=== PATIENT | female | born 1950 | race Caucasian/White ===

== ENCOUNTER → 2016-08-15 | Outpatient (CLI) | payer OTHER ==
[~2016-08-15] VITALS: Ht 165.1 cm; Wt 129.3 kg
[~2016-08-15] MED LIST: AMBIEN 5 MG TABL5 M1 PO; CELEXA20 MG PO; GLIPIZIDE XL10 MG PO; HUMALOG MI100 UNIT/1 SQ; HYDROCODONE-AP1 EAC6 PO; PRILOSEC20 MG PO; REMERON15 MG PO; SYNTHROID150 MCG PO; VASOTEC10 MG PO; XARELTO20 MG PO; ZOCOR20 MG PO; [UNRECOGNIZED DRUG - OTHER]; [UNRECOGNIZED DRUG - OTHER]
[2016-08-15 12:56] VITALS: BP 150/77
== END | disposition home or self-care (01) ==
LOC: PAIN 06:43
DX: M54.16 Radiculopathy, lumbar region (principal); E11.9 Type 2 diabetes mellitus without complications; E66.01 Morbid (severe) obesity due to excess calories; Z68.42 Body mass index [BMI] 45.0-49.9, adult; Z88.0 Allergy status to penicillin; Z88.8 Allergy status to other drugs, medicaments and biological substances; Z79.899 Other long term (current) drug therapy; Z79.4 Long term (current) use of insulin; Z98.890 Other specified postprocedural states

== ENCOUNTER 2016-09-06 20:42 | Inpatient (IN) | payer OTHER ==
[~2016-09-06] VITALS: Ht 165.1 cm; Wt 128.0 kg
--- NOTE | ~2016-09-06 | EKG ---
[address] [place] [address] ELECTROCARDIOGRAM REPORT Name: DEANNA MCGOVERN Room #: 307-P ADM IN M.R.#: [id number] Admission: 09/06/16 Attend Phys: Raffy Weaver MD Discharge: Date of : 46 Report #: [id number] THIS REPORT FOR: //name// [facility] ED Test Date: 2016-09-06 Test Time: 21:14:20 Pat Name: DEANNA MCGOVERN Department: Room: [facility] Gender: F Health Care Sanitary Technician: MARYSOL Campos : 1950 Requested By: Basilio Orellana Order Number: [id number] MD: Jairo Peña Measurements Intervals [place] Rate: 81 P: 50 LA: 154 QRS: 12 QRSD: 60 T: QT: 567 QTc: 659 Interpretive Statements Sinus rhythm Low voltage, precordial leads Borderline T abnormalities, anterior leads Prolonged QT interval Compared to ECG 11/16/2004 09:18:45 Low QRS voltage now present Prolonged QT interval now present Sinus bradycardia no longer present Electronically Signed On 09-08-2016 10:50:49 CDT by Jairo Peña [email or web address] <ELECTRONICALLY SIGNED> By: Jairo Peña MD, [facility] 09/08/16 1050 13 13 Jairo Peña MD, [facility] /EPI
[2016-09-06 20:45] VITALS: BP 148/89
[2016-09-06 21:44] LABS: ABSOLUTE NEUTROPHILS 10.5 thou/uL (1.4-8.2); BASOPHILS 0.7 % (0.0-2.0); EOSINOPHILS 0.1 % (0.0-3.0); HEMATOCRIT 41.7 % (37.0-47.0); HEMOGLOBIN 13.3 gm/dL (12.0-15.0); LYMPHOCYTES 8.4 % (24.0-44.0); MCH 26.1 pg (26.0-34.0); MCHC 31.8 g/dL (28.0-37.0); MONOCYTES 2.2 % (1.0-8.0); PLATELET COUNT 198 thou/uL (150-400); POLYS 88.6 % (36.0-66.0); RBC 5.09 mil/uL (4.20-5.00); RDW 20.8 % (10.5-14.5); WBC 11.9 thou/uL (4.0-11.0)
[2016-09-06 21:47] LABS: MANUAL DIFF NO
[2016-09-06 21:47] LABS: ABG SAMPLE TYPE ARTERIAL; BE(vivo) -6.8 mmol/L (-2 to +3); HCO3 16.4 mmol/L (22.0-26.0); O2(CT) 18.2 mL/dL (15.0-23.0); O2Hb 93.7 % (92.0-98.0); PCO2 27.1 mmHg (35.0-45.0); PO2 73.6 mmHg (80.0-100.0); pH 7.399 (7.360-7.450); sO2 95.1 % (92.0-98.0); tCO2 17.2 mmol/L (24.0-30.0)
[2016-09-06 21:53] LABS: LACTATE 4.16 mmol/L (0.5-2.0)
[2016-09-06 22:00] LABS: APTT 26.1 Seconds (24.5-32.8); PROTIME 9.7 Seconds (9.3-11.4)
[2016-09-06 22:08] LABS: ALBUMIN 3.8 g/dL (3.4-5.0); ALKALINE PHOSPHATASE 200 U/L (46-116); ANION GAP 17 mmol/L (7-16); BUN 19 mg/dL (7-18); CALCIUM 9.8 mg/dL (8.5-10.1); CHLORIDE 96 mmol/L (98-107); CO2 19 mmol/L (21-32); MAGNESIUM 1.8 mg/dL (1.8-2.4); NT-PRO BRAIN NAT PEPTIDE 110 pg/mL (<300); POTASSIUM 4.8 mmol/L (3.5-5.1); SGOT 70 U/L (15-37); SGPT 34 U/L (30-65); SODIUM 132 mmol/L (136-145); TOTAL BILIRUBIN 0.7 mg/dL (<0.1-1.0); TOTAL PROTEIN 7.5 g/dL (6.4-8.2); TROPONIN-I < 0.04 ng/mL (<0.04-0.07)
[2016-09-06 22:10] LABS: GLUCOSE 642 mg/dL (74-106)
[2016-09-07] VITALS (19 sets, daily range): BP systolic 97–140; BP diastolic 57–106
[2016-09-07 09:52] LABS: HEMATOCRIT 38.3 % (37.0-47.0); HEMOGLOBIN 12.3 gm/dL (12.0-15.0); MCH 26.3 pg (26.0-34.0); MCHC 32.1 g/dL (28.0-37.0); MCV 81.9 fL (80.0-100.0); RBC 4.68 mil/uL (4.20-5.00); RDW 20.8 % (10.5-14.5); WBC 10.3 thou/uL (4.0-11.0)
[2016-09-07 10:07] LABS: ALBUMIN 3.2 g/dL (3.4-5.0); CALCIUM 9.3 mg/dL (8.5-10.1); CREATININE 1.4 mg/dL (0.6-1.0); TOTAL BILIRUBIN 0.4 mg/dL (<0.1-1.0); TOTAL PROTEIN 6.6 g/dL (6.4-8.2)
[2016-09-07 10:10] LABS: POTASSIUM 3.7 mmol/L (3.5-5.1)
[2016-09-07 17:13] LABS: URINE BILIRUBIN NEGATIVE (Negative); URINE BLOOD 3+ (Negative); URINE COLOR YELLOW; URINE GLUCOSE-RANDOM* 3+ (Negative); URINE KETONES NEGATIVE (Negative); URINE LEUKOCYTES-REFLEX NEGATIVE (Negative); URINE PROTEIN (DIPSTICK) TRACE (Negative); URINE SPECIFIC GRAVITY 1.025 (1.003-1.035); URINE UROBILINOGEN 0.2 E.U./dl (0.2-1.0)
[2016-09-07 17:20] LABS: CASTS None Seen /LPF (None Seen); CRYSTALS None Seen /LPF (None Seen); SQUAMOUS None Seen /LPF (0-3); URINE RBC >20 Many /HPF (0-2); URINE WBC-REFLEX None Seen /HPF (0-5)
[2016-09-08 03:35] VITALS: BP 121/71
[2016-09-08 07:44] VITALS: BP 151/77
[2016-09-08 07:50] LABS: ALBUMIN 3.2 g/dL (3.4-5.0); CREATININE 1.2 mg/dL (0.6-1.0); TOTAL BILIRUBIN 0.5 mg/dL (<0.1-1.0); TOTAL PROTEIN 6.7 g/dL (6.4-8.2)
[2016-09-08 15:48] VITALS: BP 105/69
[2016-09-08 19:18] VITALS: BP 107/60
[2016-09-09 03:48] VITALS: BP 106/55
[2016-09-09 03:50] LABS: CALCIUM 9.2 mg/dL (8.5-10.1); POTASSIUM 3.9 mmol/L (3.5-5.1)
[2016-09-09 07:17] VITALS: BP 101/66
[2016-09-09 15:53] VITALS: BP 112/62
[2016-09-09 19:55] VITALS: BP 102/64
[2016-09-10] VITALS (7 sets, daily range): BP systolic 100–105; BP diastolic 57–64
[2016-09-10] MEDS ORDERED: XARELTO20 MG PO (12:20)
[2016-09-10] MEDS ORDERED: HYDROCODONE-AP1 EAC6 PO (12:20)
[2016-09-10] MEDS ORDERED: DUONEB 2.5-0.5 M3 ML INH (12:22)
[2016-09-10] MEDS ORDERED: LEVAQUIN 500 M500 M2 PO (12:22)
[2016-09-10] MEDS ORDERED: LANTUS100 UNIT/M SUBQ (12:23)
== END 2016-09-10 19:49 | disposition home health service (06) | DRG 871 ==
LOC: ER 20:42 → 3N 22:21 → EROBS 22:21 → ICU 09-07 00:01 → 3N 09-07 15:59
PROVIDERS: Emergency Medicine; Family Medicine
DX: A41.9 Sepsis, unspecified organism (principal); J18.9 Pneumonia, unspecified organism; E13.10 Other specified diabetes mellitus with ketoacidosis without coma; N17.9 Acute kidney failure, unspecified; J98.11 Atelectasis; I10 Essential (primary) hypertension; R65.20 Severe sepsis without septic shock; J45.909 Unspecified asthma, uncomplicated; M19.90 Unspecified osteoarthritis, unspecified site; K21.9 Gastro-esophageal reflux disease without esophagitis; Z96.641 Presence of right artificial hip joint; R09.02 Hypoxemia; G47.30 Sleep apnea, unspecified; T38.0X5A Adverse effect of glucocorticoids and synthetic analogues, initial encounter; Y92.89 Other specified places as the place of occurrence of the external cause; Z86.711 Personal history of pulmonary embolism; Z87.81 Personal history of (healed) traumatic fracture; Z79.01 Long term (current) use of anticoagulants; Z79.4 Long term (current) use of insulin; Z90.49 Acquired absence of other specified parts of digestive tract; Z79.899 Other long term (current) drug therapy; Z98.1 Arthrodesis status; Z87.891 Personal history of nicotine dependence; Z88.0 Allergy status to penicillin; Z88.8 Allergy status to other drugs, medicaments and biological substances; Z82.5 Family history of asthma and other chronic lower respiratory diseases
CPT/HCPCS: 10096

== ENCOUNTER → 2016-09-13 | Outpatient (CLI) | payer OTHER ==
[~2016-09-13] MED LIST changes: +DUONEB 2.5-0.5 M3 ML INH; +LANTUS100 UNIT/M SUBQ; +LEVAQUIN 500 M500 M2 PO
== END | disposition home or self-care (01) ==
LOC: PAIN
DX: J98.11 Atelectasis (principal); E13.10 Other specified diabetes mellitus with ketoacidosis without coma; Z88.0 Allergy status to penicillin; Z88.8 Allergy status to other drugs, medicaments and biological substances; Z79.4 Long term (current) use of insulin; Z79.899 Other long term (current) drug therapy; Z86.711 Personal history of pulmonary embolism; Z98.890 Other specified postprocedural states

== ENCOUNTER 2017-02-19 03:12 | Inpatient (IN) | payer OTHER ==
[~2017-02-19] VITALS: Ht 165.1 cm; Wt 122.5 kg
--- NOTE | ~2017-02-19 | EKG ---
[place] [address] [facility] [place] [address] ELECTROCARDIOGRAM REPORT Name: DEANNA MCGOVERN Room #: 170-8 ADM IN M.R.#: [id number] Admission: 02/19/17 Attend Phys: Raffy Weaver MD Discharge: Date of : 46 Report #: [id number] THIS REPORT FOR: //name// [facility] ED Test Date: 2017-02-19 Test Time: 03:32:18 Pat Name: DEANNA MCGOVERN Department: Room: 170 Gender: F Machine Tailer: chris : 1950 Requested By: Leeanne Aguilar Order Number: [id number] MD: Jairo Peña Measurements Intervals [place] Rate: 92 P: 42 MI: 147 QRS: 18 QRSD: 54 T: 7 QT: 455 QTc: 563 Interpretive Statements Sinus rhythm Low voltage, precordial leads Borderline T abnormalities, anterior leads Prolonged QT interval Compared to ECG 09/06/2016 21:14:20 No significant changes Electronically Signed On 02-19-2017 8:36:14 ORTHOPEDIC PHYSICAL THERAPIST by Jairo Peña [email or web address] <ELECTRONICALLY SIGNED> By: Jairo Peña MD, [facility] 02/19/17 0836 0332 0332 Jairo Peña MD, [facility] /EPI
[2017-02-19 03:19] VITALS: BP 148/80
[2017-02-19 03:38] LABS: ABSOLUTE NEUTROPHILS 6.5 thou/uL (1.4-8.2); BASOPHILS 0.7 % (0.0-2.0); EOSINOPHILS 0.9 % (0.0-3.0); HEMATOCRIT 44.1 % (37.0-47.0); HEMOGLOBIN 14.1 gm/dL (12.0-15.0); LYMPHOCYTES 27.4 % (24.0-44.0); MCH 25.8 pg (26.0-34.0); MCHC 31.9 g/dL (28.0-37.0); MCV 80.8 fL (80.0-100.0); MONOCYTES 6.4 % (1.0-8.0); PLATELET COUNT 200 thou/uL (150-400); POLYS 64.6 % (36.0-66.0); RBC 5.46 mil/uL (4.20-5.00); RDW 18.2 % (10.5-14.5)
[2017-02-19 03:40] LABS: BE(vivo) -3.4 mmol/L (-2 to +3); HCO3 20.8 mmol/L (22.0-26.0); PCO2 35.3 mmHg (35.0-45.0); PO2 64.9 mmHg (80.0-100.0); pH 7.389 (7.360-7.450); sO2 92.7 % (92.0-98.0)
[2017-02-19 03:51] LABS: ANION GAP 14 mmol/L (7-16); BUN 17 mg/dL (7-18); CALCIUM 9.2 mg/dL (8.5-10.1); CHLORIDE 101 mmol/L (98-107); CO2 21 mmol/L (21-32); CREATININE 1.2 mg/dL (0.6-1.0); POTASSIUM 5.6 mmol/L (3.5-5.1); SODIUM 136 mmol/L (136-145)
[2017-02-19 03:56] LABS: TROPONIN-I < 0.04 ng/mL (<0.06)
[2017-02-19 04:04] LABS: GLUCOSE 274 mg/dL (74-106)
[2017-02-19 05:03] LABS: URINE BILIRUBIN NEGATIVE (Negative); URINE BLOOD NEGATIVE (Negative); URINE CLARITY CLEAR; URINE COLOR YELLOW; URINE GLUCOSE-RANDOM* 3+ (Negative); URINE KETONES NEGATIVE (Negative); URINE LEUKOCYTES NEGATIVE (Negative); URINE NITRITE NEGATIVE (Negative); URINE PROTEIN (DIPSTICK) NEGATIVE (Negative); URINE UROBILINOGEN 0.2 E.U./dl (0.2-1.0)
[2017-02-19 12:18] VITALS: BP 104/55
[2017-02-19 16:50] VITALS: BP 116/64
[2017-02-19 17:27] VITALS: BP 107/60
[2017-02-19 20:30] VITALS: BP 110/61
[2017-02-20 04:48] VITALS: BP 123/61
[2017-02-20 08:29] VITALS: BP 141/82
[2017-02-20 16:00] VITALS: BP 129/66
[2017-02-20 19:46] VITALS: BP 112/63
[2017-02-21 04:15] VITALS: BP 144/79
[2017-02-21 08:00] VITALS: BP 137/84
[2017-02-21 08:30] VITALS: BP 137/84
[2017-02-21] MEDS ORDERED: PRADAXA150 MG PO (12:15)
[2017-02-21] MEDS ORDERED: LEVAQUIN 500 M500 M2 PO (12:16)
[2017-02-21 12:19] VITALS: BP 137/84
== END 2017-02-21 13:57 | disposition home or self-care (01) | DRG 871 ==
LOC: ER 03:12 → 4E 05:23 → EROBS 05:23 → 4E 17:04 → ENTRNSPT 02-21 13:21 → EDTRNSPTSTS 02-21 13:24 → 4E 02-21 13:57
PROVIDERS: Emergency Medicine
DX: A41.9 Sepsis, unspecified organism (principal); J18.9 Pneumonia, unspecified organism; J44.0 Chronic obstructive pulmonary disease with (acute) lower respiratory infection; M19.90 Unspecified osteoarthritis, unspecified site; K21.9 Gastro-esophageal reflux disease without esophagitis; Z96.641 Presence of right artificial hip joint; F32.9 Major depressive disorder, single episode, unspecified; E11.65 Type 2 diabetes mellitus with hyperglycemia; Z82.5 Family history of asthma and other chronic lower respiratory diseases; Z86.711 Personal history of pulmonary embolism; Z90.49 Acquired absence of other specified parts of digestive tract; Z79.4 Long term (current) use of insulin; Z88.0 Allergy status to penicillin; Z88.8 Allergy status to other drugs, medicaments and biological substances; Z87.891 Personal history of nicotine dependence; Z79.01 Long term (current) use of anticoagulants
CPT/HCPCS: 10084

== ENCOUNTER 2017-09-04 19:30 | Emergency (ER) | payer OTHER ==
[~2017-09-04] VITALS: Ht 165.1 cm; Wt 127.0 kg
[~2017-09-04 19:30] MED LIST changes: +PRADAXA150 MG PO
[2017-09-04] MEDS ORDERED: NAPROSYN500 MG PO (20:33)
== END 2017-09-04 20:53 | disposition home or self-care (01) ==
LOC: ER 19:30
DX: S80.02XA Contusion of left knee, initial encounter (principal); J45.909 Unspecified asthma, uncomplicated; M19.90 Unspecified osteoarthritis, unspecified site; K21.9 Gastro-esophageal reflux disease without esophagitis; E11.9 Type 2 diabetes mellitus without complications; Z79.4 Long term (current) use of insulin; G47.30 Sleep apnea, unspecified; Z90.49 Acquired absence of other specified parts of digestive tract; Z96.641 Presence of right artificial hip joint; Z87.891 Personal history of nicotine dependence; Z88.0 Allergy status to penicillin; W19.XXXA Unspecified fall, initial encounter; Y93.89 Activity, other specified; Y92.89 Other specified places as the place of occurrence of the external cause; Y99.8 Other external cause status

== ENCOUNTER 2018-04-30 10:54 | Inpatient (IN) | payer OTHER ==
[~2018-04-30] VITALS: Ht 165.1 cm; Wt 124.6 kg
[~2018-04-30 10:54] MED LIST changes: +NAPROSYN500 MG PO
[2018-04-30 10:57] VITALS: BP 105/75
[2018-04-30 12:01] LABS: HEMOGLOBIN 15.4 gm/dL (12.0-15.0); MCH 29.7 pg (26.0-34.0); MCHC 32.8 g/dL (28.0-37.0); MCV 90.4 fL (80.0-100.0); RDW 16.3 % (10.5-14.5); WBC 5.5 thou/uL (4.0-11.0)
[2018-04-30 12:11] LABS: ALBUMIN 3.2 g/dL (3.4-5.0); ANION GAP 7 mmol/L (7-16); BUN 12 mg/dL (7-18); CALCIUM 9.5 mg/dL (8.5-10.1); CHLORIDE 100 mmol/L (98-107); CO2 28 mmol/L (21-32); CREATININE 1.2 mg/dL (0.6-1.0); MAGNESIUM 1.8 mg/dL (1.8-2.4); SODIUM 135 mmol/L (136-145); TOTAL BILIRUBIN 0.7 mg/dL (<0.1-1.0); TOTAL PROTEIN 6.9 g/dL (6.4-8.2); TROPONIN-I <0.06 ng/mL (<0.06)
[2018-04-30 12:15] LABS: POTASSIUM 4.6 mmol/L (3.5-5.1)
[2018-04-30 12:16] LABS: GLUCOSE 513 mg/dL (74-106)
[2018-04-30 12:36] LABS: SGOT 99 U/L (15-37)
[2018-04-30 12:46] LABS: SGPT 33 U/L (30-65)
[2018-04-30 12:55] LABS: ABSOLUTE NEUTROPHILS 3.1 thou/uL (1.4-8.2)
[2018-04-30 12:56] LABS: PLATELET COUNT 178 thou/uL (150-400)
[2018-04-30 13:12] VITALS: BP 113/80
--- NOTE | 2018-04-30 13:26 | NUR ---
DR KOVACS UNAVAILABLE TO SPEAK WITH FENG, THIS CYANIDE POT TENDER UPDATED HIM ON THE PT, INCLUDING ADMIT DX AND LABS/IMAGING
[2018-04-30] MEDS ORDERED: JARDIANCE25 MG PO (14:35)
[2018-04-30] MEDS ORDERED: KOMBIGLYZE XR1 EAC2 PO (14:36)
[2018-04-30 14:40] VITALS: BP 120/74
[2018-04-30 15:00] VITALS: BP 133/85
--- NOTE | 2018-04-30 16:09 | NUR ---
PT ARIVED FROM ER 1500 WITH DX OF HYPERGYCEMIA, DIZZY, FRQUENT FALLS. ALERT X3 WITH CONFUSION. COULD NOT STATE THE YEAR. WILL CLOSE ONE EYE IN ORDER TO SEE CLEARLY. HAS UNSTEADY GAIT WITH DIZZINESS FULL FALL PRECAUTIONS IN PLACE. NSR TELE IN 70'S. CARB CONTROL DIET. CURRENT BS 349. FLUIDS NS 125ML/HR. CONTINENT TO COMMODE WITH ASSIST X1. DENIES PAIN, VSS. ADMISSION ASSESMENT AND HISTORY COMPLETED. CALL LIGHT IN REACH.
[2018-04-30 19:34] VITALS: BP 104/56
[2018-05-01 00:11] VITALS: BP 98/46
--- NOTE | 2018-05-01 03:56 | NUR ---
ASSUMED PT CARE AT 1900. PT A/OX4, VITAL SIGNS STABLE, ASSESSMENT CHARTED. NO COMPLAINTS OF PAIN/CHEST PAIN. BLOOD GLUCOSE WAS 354, SLIDING SCALE PROTOCOL FOLLOWED. PT COMPLAINED OF NAUSEA THROUGH OUT THE NIGHT. ZOFRAN GIVEN WHICH DID NOT SEEM TO HELP. PHYSICIAN INFORMED, NEW ORDERS RECIEVED AND IMPLEMENTED. PT VERBALIZED PARTIAL RELIEVE. PT OFTEN SAT UP IN BED TO HELP WITH THE NAUSEA. NO EPISODES OF VOMITING. PT ABLE TO AMBULATE SBA TO X1 ASSIST. CALLS OUT APPROPRIATELY. DIZZINES UPON STANDING BUT IMMEDIATELY RESOLVES. PT UNABLE TO GET A GOOD NIGHT'S REST DUE TO BEING NAUSEATED. HOURLY ROUNDING AND CLOSE MONITORING. PROGRESSING SLOWLY TOWARD PLAN OF CARE. WILL CONTINUE TO MONITOR.
[2018-05-01 05:53] VITALS: BP 91/49
[2018-05-01 07:41] VITALS: BP 148/93
--- NOTE | 2018-05-01 07:50 | EKG ---
[address] [place] [address] ELECTROCARDIOGRAM REPORT Name: DEANNA MCGOVERN Room #: 208-P ADM IN M.R.#: [id number] ������������������ Admission: 04/30/18 ������������������ Attend Phys: Raffy Weaver MD Discharge: ������������������ Date of : 46 Report #: [id number] ����������������������������������������������������������������� [id number] THIS REPORT FOR: //name// [facility] ED Test Date: 2018-04-30 Test Time: 12:07:35 Pat Name: DEANNA MCGOVERN Department: Room: 208 Gender: F Ticket Taker Ferryboat: WG : 1950 Requested By: Basilio Orellana Order Number: [id number] MD: Jairo Peña Measurements Intervals [place] Rate: 69 P: 42 SD: 142 QRS: -1 QRSD: 91 T: 12 QT: 431 QTc: 462 Interpretive Statements Sinus rhythm Low voltage, precordial leads Abnormal R-wave progression, late transition Nonspecific T wave abnormality Compared to ECG 02/19/2017 03:32:18 No significant change was found Electronically Signed On 05-01-2018 7:49:51 CDT by Jairo Peña [email or web address] ��������������������������������������������� <ELECTRONICALLY SIGNED> ���������������������������������������� By: Jairo Peña MD, [facility] ��������������������������������������������� 05/01/18 0749 1207 1207 Jairo Peña MD, [facility] /EPI
[2018-05-01 11:05] LABS: HEMOGLOBIN 14.7 gm/dL (12.0-15.0); MCH 29.4 pg (26.0-34.0); MCHC 33.3 g/dL (28.0-37.0); MCV 88.4 fL (80.0-100.0); RBC 4.98 mil/uL (4.20-5.00); RDW 15.6 % (10.5-14.5); WBC 6.3 thou/uL (4.0-11.0)
[2018-05-01 11:18] LABS: ALBUMIN 2.8 g/dL (3.4-5.0); CALCIUM 8.8 mg/dL (8.5-10.1); TOTAL BILIRUBIN 0.5 mg/dL (<0.1-1.0); TOTAL PROTEIN 5.9 g/dL (6.4-8.2)
[2018-05-01 11:22] LABS: POTASSIUM 3.4 mmol/L (3.5-5.1)
[2018-05-01 11:59] VITALS: BP 120/74
[2018-05-01 16:00] VITALS: BP 116/73
[2018-05-01 17:46] LABS: FOLIC ACID 19.8 ng/mL (8.6-58.9)
[2018-05-01 19:55] VITALS: BP 108/62
--- NOTE | 2018-05-01 20:10 | NUR ---
ASSUMED CARE OF PT AT 0700. A&OX4, UP WITH ASSIST X1. PT HAD NAUSEA THAT IMPROVED WITH REGLAN. PT WAS SINUS RHYTHM ON THE MONITOR. PT HAD GOOD APPETITE TODAY. BLOOD SUGARS HIGH AND PT REMAINS ON HIGH DOSE SLIDING SCALE. WILL CONT WITH POC.
--- NOTE | 2018-05-02 03:33 | NUR ---
AOX4, DIPLOPIA NOTED, FAILURE OF ABDUCTION OF THE LEFT EYE, DIABETIC PERIPHERAL NEUROPATHY. SR ON THE MONITOR, DENIES PAIN. ON ROOM AIR, CLEAR LUNG SOUNDS. COMPLAINT OF NAUSEA, MANAGED WITH METOCLOPRAMIDE. STILL WITH UNCONTROLLED BLOOD SUGAR, ON HIGH DOSE SLIDING SCALE. NSS IV AT 125 ML/HR INFUSING WELL ON RIGHT AC. MAINTAINED ON HIGH FALL RISK PRECAUTION. FF UP POC.
[2018-05-02 04:00] VITALS: BP 98/77
[2018-05-02 07:30] VITALS: BP 142/82
[2018-05-02 08:22] LABS: URINE BILIRUBIN NEGATIVE (Negative); URINE BLOOD 1+ (Negative); URINE CLARITY CLEAR; URINE COLOR YELLOW; URINE GLUCOSE-RANDOM* 3+ (Negative); URINE KETONES TRACE (Negative); URINE LEUKOCYTES-REFLEX NEGATIVE (Negative); URINE NITRITE-REFLEX NEGATIVE (Negative); URINE PROTEIN (DIPSTICK) NEGATIVE (Negative); URINE SPECIFIC GRAVITY >= 1.030 (1.005-1.035); URINE UROBILINOGEN 0.2 E.U./dl (0.2-1.0)
[2018-05-02 08:29] LABS: AMP/METHAMP Negative (Negative); BARBITURATES Negative (Negative); BENZODIAZEPINES Negative (Negative); COCAINE Negative (Negative); METHADONE Negative (Negative); OPIATES Negative (Negative); PCP Negative (Negative)
[2018-05-02 08:34] LABS: CASTS None Seen /LPF (None Seen); CRYSTALS None Seen /LPF (None Seen); URINE WBC-REFLEX 6-15 Few /HPF (0-5)
[2018-05-02 08:35] LABS: SQUAMOUS 4-10 Moderate /LPF (0-3); URINE RBC 0-2 Rare /HPF (0-2)
[2018-05-02 08:36] LABS: BACTERIA-REFLEX 1-9 Few /HPF (None Seen); YEAST-REFLEX Present (None Seen)
--- NOTE | 2018-05-02 09:15 | NUR ---
CALLED DR GIRON TO LET HIM KNOW THAT THERAPY AND CASE MANAGEMENT NEEDS TO ASSESS PATIENT AND DISCHARGE WILL NOT BE UNTIL Friday05/04/18 HE WAS OKAY WITH RHAT PLAN.
[2018-05-02 15:58] VITALS: BP 131/60
--- NOTE | 2018-05-02 18:21 | NUR ---
PT UP IN BEDSIDE CHAIR ATE DINNER AFTER BLOOD SUGAR CHECK AND S/S INSULIN. PT ALERT XS 3 STATES NO PAIN OR RESP DISTRESS. THIS NURSE SPOKE WITH RT TO HAVE C- PAP BROUGHT TO PATIENTS ROOM. PT CONT OF B&B. SBA TO BATHROOM.
[2018-05-02 19:40] VITALS: BP 118/78
--- NOTE | 2018-05-03 05:17 | NUR ---
1900- PT AO X4.VSS. DENIES PAIN, SOB, N/V AND DIZZINESS. PT HS BG 349 AND ASYMPTOMATIC. RECHECKED BG AFTER 20 UNITS OF HUMALOG BG 272. NO FURTHER COMPLAINS DURING THE NIGHT. WILL CONTINUE TO MONITOR.
[2018-05-03 05:37] VITALS: BP 125/64
[2018-05-03 08:14] VITALS: BP 142/91
[2018-05-03 12:32] VITALS: BP 143/90
[2018-05-03 15:57] VITALS: BP 138/67
--- NOTE | 2018-05-03 16:29 | NUR ---
ASSUMED CARE OF PT AT 0700. PT A&OX4, UP WITH ONE ASSIST. PT STATES HER NAUSEA HAS RESOLVED. PT COMPLAINED OF SHORTNESS OF BREATH AND PLACED ON 1L O2 NASAL CANNULA PRN. PT'S BLOOD GLUCOSE READINGS WERE STILL HIGH AND DOCTOR BREE ADDED LANTUS TO MEDICATIONS. PT'S VITALS WNL AND WAS SINUS RHYTHM ON TELEMETRY. WILL CONT WITH POC.
[2018-05-03 19:19] VITALS: BP 111/52
[2018-05-04 04:22] VITALS: BP 151/85
[2018-05-04 08:00] VITALS: BP 130/60
--- NOTE | 2018-05-04 08:16 | NUR ---
PT RESTING QUIETLY WITH CPAP OVER NOC, NO C/O PAIN, VSS, HOPING TO TRANSFER TO SKILLED TODAY WILL CON'T TO MONITOR PER PPPOC.
--- NOTE | 2018-05-04 09:42 | NUR ---
FAXED REFERRAL TO [facility] OP SPOKE WITH TIM IN ADM. SHE RECEIVED AND WILL REVIEW. DCP TO RAFIQ.
--- NOTE | 2018-05-04 09:42 | NUR ---
INITIAL ASSESSMENT: MELISSA reviewed chart and spoke with nursing and attending physician. Pt was admitted from home due to vertigo and uncontrolled DM. Pt is medically stable for discharge today. Recommendation made for pt to go to a SNF for continued rehab services and medical mgmt. MELISSA met with pt at bedside. Introduced role of SW. Pt is alert/orientated x 4. Pt reports she lives at home alone. Prior to admission, pt was independent with ADLs. Pt does have a home cpap and nebulizer. MELISSA discussed recommendation for post-acute placement. Pt is agreeable. Options provided to pt. Pt requests referral to be sent to [facility] due to location and continuity of care with her PCP. SW explained referral process and possible discharge later today. Pt verbalized understanding. planner to fax referral to [facility]. SW notified [facility] liaison. Chart copy requested. MELISSA updated attending physician. MELISSA is following to assist as needed with discharge planning.
[2018-05-04] MEDS ORDERED: ASPIR 8181 MG PO (10:05)
[2018-05-04] MEDS ORDERED: REGLAN 5 MG TAB5 MG PO (10:06)
[2018-05-04] MEDS ORDERED: PANTOPRAZOLE SO40 M1 PO (10:07)
[2018-05-04 12:00] VITALS: BP 119/91
--- NOTE | 2018-05-04 13:18 | NUR ---
[facility]. IV AND TELE DISCONTINUED.
== END 2018-05-04 13:10 | DRG 637 ==
LOC: ER 10:54 → 2N 12:58 → EROBS 12:58 → 2N 14:42
PROVIDERS: Emergency Medicine; Psychiatry & Neurology Neurology; ADMIT Family Medicine
DX: E11.10 Type 2 diabetes mellitus with ketoacidosis without coma (principal); I63.9 Cerebral infarction, unspecified; J45.909 Unspecified asthma, uncomplicated; M19.90 Unspecified osteoarthritis, unspecified site; K21.9 Gastro-esophageal reflux disease without esophagitis; R29.6 Repeated falls; I10 Essential (primary) hypertension; E78.5 Hyperlipidemia, unspecified; Z96.641 Presence of right artificial hip joint; E11.42 Type 2 diabetes mellitus with diabetic polyneuropathy; W18.30XA Fall on same level, unspecified, initial encounter; Y93.89 Activity, other specified; Y92.89 Other specified places as the place of occurrence of the external cause; Y99.8 Other external cause status; Z98.1 Arthrodesis status; Z90.49 Acquired absence of other specified parts of digestive tract; Z87.891 Personal history of nicotine dependence; Z86.711 Personal history of pulmonary embolism; Z87.81 Personal history of (healed) traumatic fracture; Z79.4 Long term (current) use of insulin; Z79.899 Other long term (current) drug therapy; Z88.0 Allergy status to penicillin; Z88.8 Allergy status to other drugs, medicaments and biological substances
CPT/HCPCS: 10081

== ENCOUNTER 2018-06-13 19:15 | Emergency (ER) | payer OTHER ==
[~2018-06-13] VITALS: Ht 165.1 cm; Wt 117.9 kg
[~2018-06-13 19:15] MED LIST changes: +ASPIR 8181 MG PO; +JARDIANCE25 MG PO; +KOMBIGLYZE XR1 EAC2 PO; +PANTOPRAZOLE SO40 M1 PO; +REGLAN 5 MG TAB5 MG PO
[2018-06-13 19:53] LABS: ABSOLUTE NEUTROPHILS 7.5 thou/uL (1.4-8.2); EOSINOPHILS 1.3 % (0.0-3.0); HEMATOCRIT 44.3 % (37.0-47.0); HEMOGLOBIN 15.2 gm/dL (12.0-15.0); LYMPHOCYTES 17.3 % (24.0-44.0); MCH 30.5 pg (26.0-34.0); MCHC 34.3 g/dL (28.0-37.0); MCV 88.8 fL (80.0-100.0); MONOCYTES 6.2 % (1.0-8.0); PLATELET COUNT 310 thou/uL (150-400); POLYS 74.2 % (36.0-66.0); RBC 4.98 mil/uL (4.20-5.00); RDW 15.7 % (10.5-14.5); WBC 10.2 thou/uL (4.0-11.0)
[2018-06-13 21:10] LABS: LARGE PLATELETS FEW; PLATELET ESTIMATE NORMAL
[2018-06-13 21:11] LABS: CALCIUM 8.7 mg/dL (8.5-10.1); CREATININE 1.1 mg/dL (0.6-1.0); POTASSIUM 4.4 mmol/L (3.5-5.1)
[2018-06-13] MEDS ORDERED: NORCO 5-325 TA1 EACH PO (21:38)
[2018-06-13 22:31] VITALS: BP 137/75
== END 2018-06-13 22:32 | disposition home or self-care (01) ==
LOC: ER 19:15
PROVIDERS: Nurse Practitioner Family
DX: S30.0XXA Contusion of lower back and pelvis, initial encounter (principal); E11.65 Type 2 diabetes mellitus with hyperglycemia; M19.90 Unspecified osteoarthritis, unspecified site; K21.9 Gastro-esophageal reflux disease without esophagitis; G47.30 Sleep apnea, unspecified; J45.909 Unspecified asthma, uncomplicated; Z96.641 Presence of right artificial hip joint; Z79.4 Long term (current) use of insulin; Z90.49 Acquired absence of other specified parts of digestive tract; Z88.0 Allergy status to penicillin; Z88.8 Allergy status to other drugs, medicaments and biological substances; W18.39XA Other fall on same level, initial encounter; Y93.89 Activity, other specified; Y92.89 Other specified places as the place of occurrence of the external cause; Y99.8 Other external cause status

== ENCOUNTER 2018-09-01 14:56 | Inpatient (IN) | payer OTHER ==
[~2018-09-01] VITALS: Ht 165.1 cm; Wt 126.2 kg
[~2018-09-01 14:56] MED LIST changes: +NORCO 5-325 TA1 EACH PO
[2018-09-01 14:57] VITALS: BP 152/94
[2018-09-01 15:29] LABS: URINE BILIRUBIN NEGATIVE (Negative); URINE BLOOD TRACE (Negative); URINE CLARITY CLEAR; URINE COLOR YELLOW; URINE GLUCOSE-RANDOM* 3+ (Negative); URINE KETONES NEGATIVE (Negative); URINE LEUKOCYTES-REFLEX NEGATIVE (Negative); URINE NITRITE-REFLEX NEGATIVE (Negative); URINE PROTEIN (DIPSTICK) NEGATIVE (Negative); URINE UROBILINOGEN 0.2 E.U./dl (0.2-1.0)
[2018-09-01 15:53] LABS: HEMATOCRIT 48.6 % (37.0-47.0); HEMOGLOBIN 15.9 gm/dL (12.0-15.0); MCH 28.9 pg (26.0-34.0); MCHC 32.7 g/dL (28.0-37.0); MCV 88.3 fL (80.0-100.0); PLATELET COUNT 208 thou/uL (150-400); RBC 5.51 mil/uL (4.20-5.00); RDW 16.2 % (10.5-14.5); WBC 6.7 thou/uL (4.0-11.0)
[2018-09-01 15:59] LABS: ALBUMIN 3.9 g/dL (3.4-5.0); ANION GAP 12 mmol/L (7-16); BUN 9 mg/dL (7-18); CALCIUM 10.3 mg/dL (8.5-10.1); CHLORIDE 95 mmol/L (98-107); CO2 26 mmol/L (21-32); CREATININE 1.2 mg/dL (0.6-1.0); MAGNESIUM 1.8 mg/dL (1.8-2.4); POTASSIUM 4.2 mmol/L (3.5-5.1); SGOT 62 U/L (15-37); SGPT 27 U/L (30-65); SODIUM 133 mmol/L (136-145); TOTAL BILIRUBIN 0.6 mg/dL (<0.1-1.0); TOTAL PROTEIN 7.8 g/dL (6.4-8.2); TROPONIN-I <0.06 ng/mL (<0.06)
[2018-09-01 16:01] LABS: GLUCOSE 582 mg/dL (74-106)
[2018-09-01 16:03] LABS: BE(vivo) -0.9 mmol/L (-2 to +3); HCO3 23.7 mmol/L (22.0-26.0); PCO2 VENOUS 39.1 mmHg (41.0-51.0); PO2 VENOUS 33.8 mmHg (35.0-45.0)
--- NOTE | 2018-09-01 16:08 | EKG ---
[place] [address] [facility] [place] [address] ELECTROCARDIOGRAM REPORT Name: DEANNA MCGOVERN [facility] [id number] ������������������ Admission: 09/01/18 ������������������ Attend Phys: Discharge: ������������������ Date of : 46 Report #: [id number] ����������������������������������������������������������������� [id number] THIS REPORT FOR: //name// [facility] ED Test Date: 2018-09-01 Test Time: 15:27:48 Pat Name: DEANNA MCGOVERN Department: Room: Gender: F Director Strategy: RHYS : 1950 Requested By: Basilio Orellana Order Number: [id number] MD: Kayode Harding Measurements Intervals [place] Rate: 69 P: 52 MI: 155 QRS: 22 QRSD: 84 T: -12 QT: 664 QTc: 712 Interpretive Statements Sinus rhythm Anterior infarct, age indeterminate Baseline wander in lead(s) V1,V2 Compared to ECG 04/30/2018 12:07:35 T-wave abnormality no longer present Electronically Signed On 09-01-2018 16:08:30 CDT by Kayode Harding [email or web address] ��������������������������������������������� <ELECTRONICALLY SIGNED> ���������������������������������������� By: Kayode Harding MD ��������������������������������������������� 09/01/18 1608 1527 1527 Kayode Harding MD /TREY
[2018-09-01 16:14] LABS: ABSOLUTE NEUTROPHILS 4.1 thou/uL (1.4-8.2); ANISOCYTOSIS 1+
[2018-09-01 19:33] VITALS: BP 105/62; BP 111/65
[2018-09-01 19:51] VITALS: BP 100/52
[2018-09-01 20:40] VITALS: BP 94/51
[2018-09-01 22:12] VITALS: BP 92/56
[2018-09-02 00:20] VITALS: BP 115/65
[2018-09-02 03:05] VITALS: BP 96/47
[2018-09-02 06:10] VITALS: BP 124/75
--- NOTE | 2018-09-02 06:30 | NUR ---
PT ARRIVED TO UNIT AT 1945 YESTERDAY FROM ER. PT CAME IN C/O HYPERGLYCEMIA AND NAUSEA, LACTIC ACID WAS INITIALLY ELEVATED. PT ALSO REPORTED IN THE ER SOME INCREASED CONFUSION. UPON ARRIVAL, PT DENIED NAUSEA AND WAS HUNGRY. DINNER GIVEN AND 20 UNITS OF HUMALOG GIVEN PER SLIDING SCALE. PT A&O X3 AND CALM; PT C/O OF CHRONIC BACK PAIN. A FEW HOURS AFTER ARRIVAL TO UNIT, PT BEGAN C/O NAUSEA. ZOFRAN GIVEN, WHICH PT REPORTED GAVE NO RELIEF. ORDER FOR PHENERGAN OBTAINED FROM DR. GIRON. PT REPORTED SOME RELIEF WITH PHENERGAN, BUT STILL FELT NAUSEOUS. ZOFRAN OR PHENERGAN GIVEN Q2H, ALTERNATING BETWEEN THE TWO. PT IS NON COMPLIANT WITH DIABETES MANAGMENT. PT SAYS SHE DOES NOT REALLY MONITOR HER SUGAR/CARB INTAKE AND ONLY CHECKS HER BLOOD GLUCOSE Q1D. EDUCATION GIVEN. PT SAYS SHE HAS NO PROBLEMS WITH GETTING INSULIN OR BG MONITORING SUPPLIES. PT REMAINS NAUSEOUS THIS AM; MAY NEED A CHANGE IN NAUSEA MEDS. PT IS NOT YET PROGRESSING AND STILL REQUIRES EXTENSIVE EDUCATION ON DIABETES MANAGMENT AT HOME. WILL CONTINUE TO MONITOR. EPIPEN FROM PT'S PURSE DROPPED OFF AT PHARMACY IN PT SECURITY BAG. SLIP FROM BAG WAS LEFT IN CHART.
[2018-09-02 07:30] VITALS: BP 123/70
[2018-09-02 08:13] LABS: HEMATOCRIT 43.5 % (37.0-47.0); HEMOGLOBIN 14.1 gm/dL (12.0-15.0); MCH 28.6 pg (26.0-34.0); MCHC 32.3 g/dL (28.0-37.0); MCV 88.6 fL (80.0-100.0); RBC 4.91 mil/uL (4.20-5.00); RDW 15.8 % (10.5-14.5); WBC 6.1 thou/uL (4.0-11.0)
[2018-09-02 08:29] LABS: ALBUMIN 2.9 g/dL (3.4-5.0); CREATININE 0.9 mg/dL (0.6-1.0); TOTAL BILIRUBIN 0.5 mg/dL (<0.1-1.0); TOTAL PROTEIN 5.9 g/dL (6.4-8.2)
[2018-09-02 08:30] LABS: POTASSIUM 3.9 mmol/L (3.5-5.1)
--- NOTE | 2018-09-02 08:32 | NUR ---
assessment: CM REVIEWED CHART AND MET WITH PATIENT AT THE BEDSIDE. PT REPORTS SHE LIVES IN A HOUSE ALONE. PT REPORTS HAVING NO STEPS TO ENTER AND NO STEPS SHE HAS TO USE ONCE INSIDE. PT REPORTS SHE IS FULLY INDEPENDENT WITH ADLS AND AMBULATION. PT REPORTS SHE DOES HAVE A CANE AND WALKER AT HOME IF NEEDED. PT STATES SHE HAS A CPAP AND NEBULIZER. PT HAS BEEN TO [facility] IN THE PAST FOR SNF AND REPORTS HAVING HH YEARS AGO BUT UNSURE THE AGENCY. CM DISCUSSED HER DIABETES AND MANAGEMENT. SHE STATES SHE DOES HAVE A GLUCOMETER AND HAS NO ISSUES GETTING SUPPLIES OR INSULIN. CM DISCUSSED ROLE. PT STATES SHE MAY BENEFIT FROM HH AND HAD NO PREFERENCE OF HH AGENCY. [facility] CM WILL CONTINUE TO FOLLOW TO ASSIST NEEDED.
--- NOTE | 2018-09-02 11:17 | NUR ---
ASSUMED CARE OF PT AT 0700. PT HAS BEEN AOx4, SITTING UP ON THE EDGE OF BED. PT COMPLAINS OF LOW BACK PAIN 9/10 AND NAUSEA. PAIN TREATED WITH PRN MEDICATIONS PER EMAR. PRN NAUSEA MEDICATION REQUESTED FROM PHARMACY AND PT SLEEPING WHEN ATTEMPTED TO ADMINISTER. ABDOMINAL US COMPLETED THIS MORNING. REPORTS FATTY LIVER, MILD SPLENOMEGALY, AND SIMPLE CYST ON LEFT RENAL POLE. PT IS NOT YET PROGRESSING TOWARD POC GOALS. WILL CONTINUE TO MONITOR AND ASSESS.
[2018-09-02 15:58] VITALS: BP 97/58
[2018-09-02 19:35] VITALS: BP 119/77
[2018-09-03 04:00] VITALS: BP 130/72
--- NOTE | 2018-09-03 04:35 | NUR ---
ASSUMED CARE OF PT. AT 1900. PT. IS A&O X3-4, OCCASIONALLY GETS CONFUSED ABOUT THE TIME. PT COMPLAINS OF LOWER BACK PAIN AND NAUSEA THROUGHOUT THE SHIFT. MEDICATIONS ALLIEVIATE PAIN AND NAUSEA. PT. REQUESTED BOX LUNCH TO EAT BECASUE OF REDUCED NAUSEA. PT. HAS ADEQUATE URINARY OUTPUT. VSS. ASSESSMENT CHARTED. BLOOD SUGAR STILL REMAINS HIGH. PT. PROGRESSING TOWARDS GOALS, WILL CONTINUE TO MONITOR.
[2018-09-03 07:27] VITALS: BP 130/72
[2018-09-03 08:11] VITALS: BP 137/83
[2018-09-03 09:43] LABS: ALBUMIN 2.7 g/dL (3.4-5.0); CALCIUM 8.1 mg/dL (8.5-10.1); POTASSIUM 3.7 mmol/L (3.5-5.1); TOTAL BILIRUBIN 0.3 mg/dL (<0.1-1.0); TOTAL PROTEIN 5.9 g/dL (6.4-8.2)
--- NOTE | 2018-09-03 10:42 | NUR ---
Assessed d/t high BMI of 46.3 kg/m2. Admitted with hyperglycemia, elevated lactic acid. Pt on a carb controlled diet and eating very well. Denies any appetite issues. Weight hx shows fluctuating weight, ranging from 249-280# over the past 1.5 years. Eats 2 meals/day - considers herself a "snacker." CBW of 278# per daily 09/03 wt. Persistently elevated BGs ranging 252-309 mg/dl per 09/02, 323 mg/dl this AM. On Humalog SSI now, but at home takes Jardiance and Lantus per H&P. Denies past diabetes ed, thus education provided today for wt loss and improved DM control. See education note for further details. Also provided contact info for Outpatient RD too. Remains a low nutrition risk. for further details.
--- NOTE | 2018-09-03 11:51 | NUR ---
ON-GOING ASSESSMENT: CM REVIEWED CHART AND MET WITH PT AT THE BEDSIDE. PT/OT RECOMMENDING HH VS POST ACUTE CARE. CM DISCUSSED THIS WITH PATIENT. SHE REPORTS SHE PREFERS TO GO HOME WITH HH ([facility]) IF POSSIBLE BUT WILL SEE HOW SHE PROGRESSE. CM ALSO LEFT PATIENT WITH SNF LIST IF SHE DECIDES TO GO TO SNF.
[2018-09-03 16:13] VITALS: BP 119/63
--- NOTE | 2018-09-03 18:38 | NUR ---
ASSESMENTS AND INTERVENTIONS DOCUMENTED. NURSE ASSUMED CARE MID SHIFT. PLAN OF CARE TO MONITOR BLOOD GLUCOSE AND NAUSEA WILL BE CONTINUED.
[2018-09-03 19:30] VITALS: BP 104/59
[2018-09-04 03:55] VITALS: BP 112/64
--- NOTE | 2018-09-04 05:45 | NUR ---
PT MAKING SLOW PROGRESS TOWARDS GOALS. X2 DOSES OF ORAL PHENERGAN GIVEN FOR COMPLAINT OF NAUSEA. BOTH TIMES THE NAUSEA WAS UNRELIEVED AND IV ZOFRAN WAS GIVEN. PT REPORTS THAT THE ZOFRAN IS MUCH MORE EFFECTIVE. DENIES KNOWING ANY CONTRIBUTING TO THIS NAUSEA. NS ASSESSMENT LISTS PT LAST BM ON August. WILL ASK DAY RN TO SPEAK TO PHYSICIAN.
[2018-09-04 07:19] VITALS: BP 124/73
--- NOTE | 2018-09-04 11:14 | NUR ---
PATIENT WALKED WITH PT AROUND HALLS WITHOUT OXYGEN AND SATURATION WAS 95%.
--- NOTE | 2018-09-04 12:14 | NUR ---
ON-GOING ASSESSMENT: CM REVIEWED CHART AND MET WITH PATIENT AT THE BEDSIDE. PT IS LIKELY DISCHARGE TODAY WITH HH ([facility]). PT IS ON ROOM AIR AND NOT REQUIRING OXYGEN. CM NOTIFIED [facility] OF LIKELY DISCHARGE TODAY. PT REPORTS NO FURTHER NEEDS FROM CM.
[2018-09-04 16:05] VITALS: BP 130/74
[2018-09-04 19:30] VITALS: BP 113/60
[2018-09-05 03:26] VITALS: BP 107/62
--- NOTE | 2018-09-05 05:31 | NUR ---
FOLLOWING POC WITH IVF FLUIDS AND ACCU CHECKS. PT CHIEF COMPLAINT DURING THE SHIFT WAS NAUSEA WITH NO EMESIS NOTED. FOUND RELIEF WITH IV ZOFRAN THEN 2 HOURS LATER ORAL PROMETH. PT WAS AWAKE AT 0245 AND WAS COACHED TO TAKE A SHOWER IN HOPES TO HELP PT RELAX. VSS WITH NO OTHER COMPLAINTS.
[2018-09-05 07:42] VITALS: BP 137/61
[2018-09-05] MEDS ORDERED: LANTUS100 UNIT/M SUBQ (10:02)
--- NOTE | 2018-09-05 11:09 | NUR ---
Assumed pt care this am, no nausea and vomiting has been noted. Diet is well tolerated. Vital sings have been stable, no signs or verbalizations of distress. Pt is steady with her gait and able to transfer ambulate from the bed to the commode with ease. Blood sugards monitored, medications given, improved vs previous night. POC followed. DC orders given, instruction and presctiptions given to the pt.
== END 2018-09-05 12:42 | disposition home health service (06) | DRG 637 ==
LOC: ER 14:56 → 3W 16:48 → EROBS 16:48 → 3W 19:35
PROVIDERS: Emergency Medicine; ADMIT Family Medicine
DX: E11.10 Type 2 diabetes mellitus with ketoacidosis without coma (principal); N17.0 Acute kidney failure with tubular necrosis; J98.11 Atelectasis; Z68.42 Body mass index [BMI] 45.0-49.9, adult; Z90.49 Acquired absence of other specified parts of digestive tract; N18.9 Chronic kidney disease, unspecified; E11.22 Type 2 diabetes mellitus with diabetic chronic kidney disease; G47.33 Obstructive sleep apnea (adult) (pediatric); M19.90 Unspecified osteoarthritis, unspecified site; K21.9 Gastro-esophageal reflux disease without esophagitis; J45.909 Unspecified asthma, uncomplicated; Z96.641 Presence of right artificial hip joint; Z98.1 Arthrodesis status; Z79.84 Long term (current) use of oral hypoglycemic drugs; Z88.0 Allergy status to penicillin; Z88.8 Allergy status to other drugs, medicaments and biological substances; Z87.891 Personal history of nicotine dependence
CPT/HCPCS: 10879

== ENCOUNTER 2018-09-09 00:18 | Inpatient (IN) | payer OTHER ==
[~2018-09-09] VITALS: Ht 165.1 cm; Wt 117.9 kg
[2018-09-09 01:12] VITALS: BP 126/76
[2018-09-09 01:44] LABS: ABSOLUTE NEUTROPHILS 4.4 thou/uL (1.4-8.2); BASOPHILS 1.9 % (0.0-2.0); EOSINOPHILS 1.2 % (0.0-3.0); HEMATOCRIT 44.9 % (37.0-47.0); HEMOGLOBIN 14.9 gm/dL (12.0-15.0); LYMPHOCYTES 32.6 % (24.0-44.0); MCH 29.4 pg (26.0-34.0); MCHC 33.2 g/dL (28.0-37.0); MCV 88.4 fL (80.0-100.0); MONOCYTES 6.1 % (1.0-8.0); PLATELET COUNT 219 thou/uL (150-400); POLYS 58.2 % (36.0-66.0); RBC 5.08 mil/uL (4.20-5.00); RDW 16.6 % (10.5-14.5); WBC 7.5 thou/uL (4.0-11.0)
[2018-09-09 01:49] LABS: ANION GAP 9 mmol/L (7-16); BUN 9 mg/dL (7-18); CALCIUM 9.2 mg/dL (8.5-10.1); CHLORIDE 103 mmol/L (98-107); CO2 27 mmol/L (21-32); CREATININE 1.2 mg/dL (0.6-1.0); GLUCOSE 317 mg/dL (74-106); POTASSIUM 3.8 mmol/L (3.5-5.1); SODIUM 139 mmol/L (136-145)
[2018-09-09 01:59] LABS: TROPONIN-I <0.06 ng/mL (<0.06)
[2018-09-09 06:40] LABS: URINE BILIRUBIN NEGATIVE (Negative); URINE BLOOD 1+ (Negative); URINE COLOR YELLOW; URINE GLUCOSE-RANDOM* 3+ (Negative); URINE KETONES NEGATIVE (Negative); URINE LEUKOCYTES-REFLEX NEGATIVE (Negative); URINE NITRITE-REFLEX NEGATIVE (Negative); URINE PROTEIN (DIPSTICK) TRACE (Negative); URINE SPECIFIC GRAVITY >= 1.030 (1.005-1.035); URINE UROBILINOGEN 0.2 E.U./dl (0.2-1.0)
[2018-09-09 06:41] LABS: URINE CLARITY SL HAZY
[2018-09-09 06:56] LABS: SQUAMOUS 4-10 Moderate /LPF (0-3)
[2018-09-09 06:57] LABS: BACTERIA-REFLEX 1-9 Few /HPF (None Seen); CASTS None Seen /LPF (None Seen); CRYSTALS None Seen /LPF (None Seen); MUCUS >6 Heavy strn/LPF (None Seen); URINE RBC 0-2 Rare /HPF (0-2); URINE WBC-REFLEX 0-5 Rare /HPF (0-5)
--- NOTE | 2018-09-09 08:17 | EKG ---
[address] [place] [address] ELECTROCARDIOGRAM REPORT Name: DEANNA MCGOVERN Room #: 170-6 ADM IN M.R.#: [id number] Admission: 09/09/18 Attend Phys: Raffy Weaver MD Discharge: Date of : 46 Report #: [id number] THIS REPORT FOR: //name// [facility] ED Test Date: 2018-09-09 Test Time: 01:32:00 Pat Name: DEANNA MCGOVERN Department: Room: 170 Gender: F Binman: JOHN : 1950 Requested By: Jesus Alberto Reed Order Number: [id number] MD: Jairo Peña Measurements Intervals [place] Rate: 63 P: 63 MI: 147 QRS: 66 QRSD: 60 T: -68 QT: 562 QTc: 576 Interpretive Statements Sinus rhythm Anteroseptal infarct, age indeterminate Nonspecific T wave abnormality Low voltage Compared to ECG 09/01/2018 15:27:48 No significant change was found Electronically Signed On 09-09-2018 8:17:47 CDT by Jairo Peña [email or web address] <ELECTRONICALLY SIGNED> By: Jairo Peña MD, [facility] 09/09/18 0817 0132 0132 Jairo Peña MD, [facility] /EPI
[2018-09-09 09:00] VITALS: BP 105/60
[2018-09-09 09:28] VITALS: BP 110/67
[2018-09-09 10:03] VITALS: BP 127/77
--- NOTE | 2018-09-09 10:06 | NUR ---
PT ORIENTD TO ROOM AND UNIT. BED LOW AND LOCKED, SIDE RAILS UP X3, CALL LIGHT IN REACH. TELEL APPLIES AND PT SAFETY NOT GIVEN. WILL CONTINUE TO ASSESS.
--- NOTE | 2018-09-09 15:04 | NUR ---
PT OFF UNIT TO MRI.
[2018-09-09 20:15] VITALS: BP 133/53
[2018-09-10 04:45] VITALS: BP 129/62
--- NOTE | 2018-09-10 06:40 | NUR ---
PATIENT COMPLAIN OF NAUSEA.PHENERGAN WAS GIVEN ORDERED BY DR GIRON.PT STATES SHE FELT BETTER.PROTONIX GIVEN THIS MORNING.DENIES PAIN AND SOB.WILL MONITOR AND CONTINUE POC.
--- NOTE | 2018-09-10 08:35 | NUR ---
Pt w/ moderate nutrition screening trigger for BMI >40. Pt seen by same RD exactly 1 week ago for BMI > 40 and detailed diet ed provided. See patient care note and education note from 09/03. Pt reported she was eating well with no appetite concerns then. Here for nausea, dizziness per H&P - same symptoms reported last week. On carb controlled diet again. Last week reported wt fluctuates 249-280# - pt still in this same range. Will remain low nutrition risk, unless becomes not able to tolerate/keep PO down > 5 days.
--- NOTE | 2018-09-10 13:12 | NUR ---
DP sent skilled referral to Francine at [facility]. Ning/daniela [facility] said Francine is expecting. Also sent August 2018 discharge copy to Francine to help qualify patient for skilled.
--- NOTE | 2018-09-10 14:00 | NUR ---
Case opened to follow for dc planning. Pt known to cm from recent admission last week and earlier in the year. The pt is a&ox4 and lives indep in her own home. She has no steps. She has a rwalker and cane if needed as well as her cpap and nebulizer. Her dtr is very involved and supportive. The pt was dc'd home on 09/01/28 with hh per [facility]. She readmitted with dizziness,falls and n/v. Therapy evals completed and recommendations for a snf stay discussed with the pt at bedside. She is agreeable to a short snf stay. She has been to [facility] of OP before and would like to use them again. Her pcp goes there as well. Referral called to [facility] and they will have a bed available tomorrow. Dc space planner to fax referral. The pt is within her 30day window for a snf stay from her recent hospital stay. All parties updated. Possible dc to snf at [facility] tomorrow if cleared medically. MRI neg. Pt continues to c/o nausea and dizzinesss. Nursing notified.
--- NOTE | 2018-09-10 14:55 | NUR ---
ASSESSMENT CHARTED. PT ALERT AND ORIENTED. PRN NAUSEA MED GIVEN WITH PARTIAL RELIEF. HAD X1 EPISODE OF DIZZINESS. EVALUATED BY PHYSIAL THERAPIST. SEEN BY DR. GIRON. ORDERS NOTED. PLAN TO BE DISCHARGE IN AM. WILL CONTINUE TO MONITOR.
[2018-09-10 15:52] VITALS: BP 104/53
[2018-09-10 20:01] VITALS: BP 114/56
[2018-09-11 04:41] VITALS: BP 120/53
--- NOTE | 2018-09-11 06:42 | NUR ---
NO OVERNIGHT EVENTS. DENIES PAIN AND NAUSEA. PT SLEPT WELL ALL NIGHT. PT IS PROGRESSING. WILL CONTINUE TO MONITOR.
[2018-09-11] MEDS ORDERED: LEVAQUIN 500 M500 M2 PO (07:16)
[2018-09-11] MEDS ORDERED: FLONASE 0.05%50 MCG NASAL (07:17)
[2018-09-11 08:01] VITALS: BP 125/65
--- NOTE | 2018-09-11 11:52 | NUR ---
PT DISCHARGING TODAY TO [facility] FAXED DC ORDERS/SUMMARY TO FACILITY SPOKE WITH TIM IN ADM SHE RECEIVED DC ORDERS AND ARRANGED TRANSPORTATION VIA WC VAN FOR 1230 TODAY. DCP LEFT MS WITH DTR MANDEEP OF DC AND TIME OF TRANSPORT. UNIT NOTIFIED AND CHART COPY PER US. RN TO CALL REPORT TO [phone].
--- NOTE | 2018-09-11 12:41 | NUR ---
ASSESSMENT CHARTED. PT ALERT AND ORIENTED WITH FORGETFULNESS. SB ON TELE. ORDERS GIVEN TO DISCHARGE PT TO SNF. FAMILY AND PT NOTIFIED.
== END 2018-09-11 12:49 | DRG 149 ==
LOC: ER 00:18 → EROBS 08:08 → 2N 08:08
PROVIDERS: Emergency Medicine; ADMIT Family Medicine
DX: H81.10 Benign paroxysmal vertigo, unspecified ear (principal); J45.909 Unspecified asthma, uncomplicated; M19.90 Unspecified osteoarthritis, unspecified site; K21.9 Gastro-esophageal reflux disease without esophagitis; E11.9 Type 2 diabetes mellitus without complications; Z96.641 Presence of right artificial hip joint; J32.9 Chronic sinusitis, unspecified; Z88.0 Allergy status to penicillin; Z79.4 Long term (current) use of insulin; Z88.8 Allergy status to other drugs, medicaments and biological substances; Z90.49 Acquired absence of other specified parts of digestive tract; Z87.891 Personal history of nicotine dependence; Z82.5 Family history of asthma and other chronic lower respiratory diseases; Z79.82 Long term (current) use of aspirin; Z79.899 Other long term (current) drug therapy
CPT/HCPCS: 10081

== ENCOUNTER 2018-10-12 15:35 | Inpatient (IN) | payer OTHER ==
[~2018-10-12] VITALS: Ht 165.1 cm; Wt 117.9 kg
[~2018-10-12 15:35] MED LIST changes: +FLONASE 0.05%50 MCG NASAL
[2018-10-12 15:36] VITALS: BP 129/88
[2018-10-12 15:54] LABS: URINE BILIRUBIN NEGATIVE (Negative); URINE BLOOD TRACE (Negative); URINE CLARITY CLEAR; URINE COLOR YELLOW; URINE GLUCOSE-RANDOM* 3+ (Negative); URINE KETONES 1+ (Negative); URINE LEUKOCYTES-REFLEX NEGATIVE (Negative); URINE NITRITE-REFLEX NEGATIVE (Negative); URINE PROTEIN (DIPSTICK) NEGATIVE (Negative); URINE SPECIFIC GRAVITY 1.025 (1.005-1.035); URINE UROBILINOGEN 0.2 E.U./dl (0.2-1.0)
[2018-10-12 16:08] LABS: ABSOLUTE NEUTROPHILS 6.3 thou/uL (1.4-8.2); BASOPHILS 0.8 % (0.0-2.0); EOSINOPHILS 1.1 % (0.0-3.0); HEMATOCRIT 48.2 % (37.0-47.0); HEMOGLOBIN 16.2 gm/dL (12.0-15.0); LYMPHOCYTES 23.2 % (24.0-44.0); MCH 29.4 pg (26.0-34.0); MCHC 33.7 g/dL (28.0-37.0); MCV 87.3 fL (80.0-100.0); MONOCYTES 6.2 % (1.0-8.0); PLATELET COUNT 252 thou/uL (150-400); POLYS 68.7 % (36.0-66.0); RBC 5.52 mil/uL (4.20-5.00); RDW 15.5 % (10.5-14.5); WBC 9.2 thou/uL (4.0-11.0)
[2018-10-12 16:14] LABS: POTASSIUM 4.1 mmol/L (3.5-5.1)
[2018-10-12 16:20] LABS: ALBUMIN 4.1 g/dL (3.4-5.0); TOTAL BILIRUBIN 0.7 mg/dL (<0.1-1.0); TOTAL PROTEIN 7.9 g/dL (6.4-8.2)
--- NOTE | 2018-10-12 16:34 | EKG ---
[facility] [place] [address] ELECTROCARDIOGRAM REPORT Name: DEANNA MCGOVERN [id number] Admission: 10/12/18 Attend Phys: Discharge: Date of : 46 Report #: [id number] THIS REPORT FOR: //name// [facility] ED Test Date: 2018-10-12 Test Time: 15:58:05 Pat Name: DEANNA MCGOVERN Department: Room: Gender: F Starch [employer] Prosize Mixer: HEMANT : 1950 Requested By: Candy Coats Order Number: [id number] MD: Jairo Peña Measurements Intervals [place] Rate: 88 P: 44 [place]: 142 QRS: 4 QRSD: 64 T: 37 QT: 489 QTc: 592 Interpretive Statements Sinus rhythm Low voltage Nonspecific ST and T wave abnormality Poor R wave progression Prolonged QT interval Compared to ECG 09/09/2018 01:32:00 No significant change was found Electronically Signed On 10-12-2018 16:34:29 CDT by Jairo Peña [email or web address] <ELECTRONICALLY SIGNED> By: Jairo Peña MD, [facility] 10/12/18 1634 1558 1558 Jairo Peña MD, [facility] /EPI
[2018-10-12 16:49] LABS: URINE RBC 0-2 Rare /HPF (0-2)
[2018-10-12 16:50] LABS: BACTERIA None Seen /HPF (None Seen); CASTS None Seen /LPF (None Seen); CRYSTALS None Seen /LPF (None Seen); SQUAMOUS 0-3 Few /LPF (0-3)
[2018-10-12 18:08] VITALS: BP 113/64
[2018-10-12 18:18] VITALS: BP 111/58
--- NOTE | 2018-10-12 18:46 | NUR ---
ADMITTED PATIENT TO ROOM AT THIS TIME. SHE IS ALERT ORIENTED X4. STATES SHE IS TOO SLEEPY AND WILL LIKE TO TAKE A NAP. ASSISTED TO BED. ORIENTED TO ROOM AND UNIT PROTOCOLS. NO NAUSEA NOTED AT THE MOMENT. WILL CONT TO MONITOR.
[2018-10-12 20:21] VITALS: BP 103/57
--- NOTE | 2018-10-13 01:22 | NUR ---
Assumed pt care at 1900.Admission paperwork completed. Pt's A/OX4,up with SBA with RW/GB reports to be up ad destinee at home has RW but doesn't use it. Also reports she drove herself to the hospital;car packed in the hospital parking lot. Pt c/o nausea w/o emesis, contacted at beginning of the shift orders obtained;Pharmacy called stating Phenergan can be given IV only in the ER and give PO if pt can handle it since she's not throwing up. Medication administered at 2200 and pt been resting eyes closed w/o further complaints of nausea. Will continue to monitor pt. Fall precautions implemented.
[2018-10-13 03:45] VITALS: BP 116/60
[2018-10-13 07:15] VITALS: BP 126/62
--- NOTE | 2018-10-13 08:37 | NUR ---
Assess due to RD consult received. High BMI 43.3=extreme class III obesity and admit for recurrent n/v. Workup in progress with GI consulted. Wts have been variable 249-280 past year and current wt is 260 lb. BG 128-138, much improved from August admit when BG 200-300s. Recommend A1C level. Pt had received diabetes/wt loss education last month. Currently npo. Followup for ability to advance diet with tolerance and any further nutrition education questions. Otherwise low nutrition risk.
[2018-10-13 13:00] VITALS: BP 132/64
--- NOTE | 2018-10-13 14:29 | NUR ---
PT ADMITTED RELATED TO INTRACTABLE NAUSEA. CM REVIEWED CHART AND SPOKE WITH CARE TEAM. CM MET WITH PT AT BEDSIDE THIS DAY. PT IS A&O X4. CM ROLE INTRODUCED. PT INDICATED SHE LIVES IN A HOUSE ALONE WITH NO STEPS. 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 PT INDICATED SHE HAD A FWW SHOULD SHE NEED IT UPON DC. PT INDICATED NO OTHER DME, HH OR OP THERAPY HISTORY. PT INDICATED SHE PLANS TO RETURN HOME ONCE MEDICALLY STABLE. CM TO FOLLOW SHOULD SHE NEED ANYTHING UPON DC.
[2018-10-13 19:37] VITALS: BP 114/57
--- NOTE | 2018-10-13 20:19 | NUR ---
Assumed pt care this am, received NPO for EGD, US of the abdomen done today. Pt complained of nausea but no vomiting has been noted. Clear liquids are well tolerated advancing to soft. POC followed, vs stable, endorse to the night nurse.
--- NOTE | 2018-10-14 02:46 | NUR ---
ASSUMED CARE OF PT @1900. PT IS A&OX4. AMBULATES WITH 1ASSIST AND A WALKER TO THE BR. PT HAD A LARGE BM. STILL COMPLAINS OF NAUSEA AND WAS MEDICATED ACCORDINGLY. NO VOMITING. BS ACTIVE. FALLS PREC IN PLACE. CALL STEVE WITHIN REACH. WILL CONT. TO MONITOR
[2018-10-14 05:53] LABS: HEMATOCRIT 42.4 % (37.0-47.0); MCH 29.6 pg (26.0-34.0); MCHC 33.1 g/dL (28.0-37.0); MCV 89.6 fL (80.0-100.0); RBC 4.73 mil/uL (4.20-5.00); RDW 15.6 % (10.5-14.5); WBC 7.1 thou/uL (4.0-11.0)
[2018-10-14 06:10] LABS: CALCIUM 8.8 mg/dL (8.5-10.1); CREATININE 0.7 mg/dL (0.6-1.0); POTASSIUM 3.8 mmol/L (3.5-5.1); TOTAL BILIRUBIN 0.5 mg/dL (<0.1-1.0); TOTAL PROTEIN 6.2 g/dL (6.4-8.2)
[2018-10-14 07:36] VITALS: BP 96/52
--- NOTE | 2018-10-14 13:35 | NUR ---
Assumed pt care this am, pt still complains od nausea witn no vomitus. Informed Dr. Hurd, patch prescribed will monitor for effectiveness. Pt is steady on her gait able to ambulate with her walker. VS stable POC being followed.
--- NOTE | 2018-10-14 14:06 | PATH ---
[facility] [place] [address] PATHOLOGY RPT PROCEDURE Name: CYNDIE MCGOVERN Room #: 464-P ADM IN M.R.#: [id number] Admission: 10/12/18 Date of : 46 Discharge: Report #: [id number] Path Case #: [id number] [facility] Accession Number: [id number] . 01 Material submitted: . stomach - RANDOM GASTRIC BX . 01 Clinical history: . Pre-OP DX: Abdominal pain Post-OP DX: Gastritis Rule out infectious gastritis . 02 Diagnosis: Stomach, random biopsy: - Chronic superficial gastritis, mild. - No evidence of Helicobacter pylori on immunoperoxidase stain. (SKM:hollis; 10/14/2018) QMS/10/14/2018 . 02 Electronically signed: . Luis Burdick MD, Pathologist NPI- [id number] . 01 Gross description: . Received in formalin labeled "Rod, Cyndie, random gastric BX," are 6 segments of danielle soft tissue measuring 1.5 x 0.9 x 0.2 cm in aggregate dimensions and ranging from 0.3 to 0.6 cm in maximum dimension. The specimen is submitted entirely in cassette A1. (TSD; 10/13/2018) TOB/TOB . 02 Pathologist provided ICD-10: K29.30 . 02 CPT . 780811, A82245 Specimen Comment: A courtesy copy of this report has been sent to Specimen Comment: [phone], . Specimen Comment: Report sent to / DR GIRON Performed at: [address], [place] [id number] MD Alberto Dickinson MD Phone: [phone] Performed at: [address] [id number] MD Mary Mckee MD Phone: [phone]
[2018-10-14 14:10] VITALS: BP 104/55
--- NOTE | 2018-10-14 15:40 | NUR ---
CARE TEAM INDICATED PT IS STILL HAVING NAUSEA. IT IS ANTICPATED THAT PT WILL DC HOME WITH NO NEEDS ONCE MEDICALLY STABLE.
--- NOTE | 2018-10-15 04:27 | NUR ---
ASSESSMENT COMPLETED. PT STILL C/O NAUSEOUS. NO VOMITING. STEADY GAIT WITH STANDBY ASSIST TO THE BR. US OF ABDOMEN WAS DONE AND IT SHOWED HEPATOMEGALLY AND L RENAL CYST. PT IS HAVING A RESTFUL NIGHT. FALL PREC IN PLACE. CALL STEVE WITHIN REACH. WILL CONT TO MONITOR
[2018-10-15 08:00] VITALS: BP 145/70
[2018-10-15] MEDS ORDERED: Transderm-Scop 1MG/7 TRANSDERM (12:37)
--- NOTE | 2018-10-15 13:13 | NUR ---
Following for d/c planning needs. Pt was hospitalized at [facility] in August and went to [facility] on 09/03. Pt was d/c home from [facility] and they had arranged [facility] to begin on Friday, 10/11. Pt admitted back to the hospital on 10/12. Pt wants to use [facility]. Asked demand planner to fax orders. No other needs identified. Patient choice letter signed and placed on chart.
[2018-10-15 13:14] VITALS: BP 145/70
--- NOTE | 2018-10-15 13:22 | NUR ---
DISCHARGE ORDERS COMPLETED. PATIENT DISCHARGING TO HOME, HOME HEALTH RECOMMENDED. PATIENT WAS ESTABLISHED AND MEANT TO BEGIN HOME HEALTH SERVICES WITH [facility] PRIOR TO ADMISSION. PATIENT DISCHARGE ORDERS/HOME HEALTH SUMMARY FAXED TO [facility]. CALL PLACED TO LEONIDAS TO NOTIFY. VERIFIED ORDERS RECEIVED. LEONIDAS TO FACILITATE PATIENTS HH NEEDS. UNIT SW AWARE.
[2018-10-15 13:56] VITALS: BP 145/70
--- NOTE | 2018-10-15 19:57 | NUR ---
PT DISCHARGED HOME, PT A&OX4, VSS, DENIES PAIN. NO SIGNS OF DISTRESS, PATIENT HAD DECREASED NAUSEA AFTER ANTIEMETIC GIVEN. IV REMOVED, ALL BELONGINGS WITH PATIENT. PRESCRIPTIONS AND DISCHARGE PAPERWORK GIVEN TO PATIENT.
[2018-10-15] MEDS ORDERED: PRILOSEC OTC20 MG PO (21:34)
[2018-10-15] MEDS ORDERED: PHENERGAN 25 MG25 M1 PO (21:34)
== END 2018-10-15 15:16 | disposition home health service (06) | DRG 384 ==
LOC: ER 15:35 → 4W 18:04 → EROBS 18:04 → 4W 18:18 → ENTRNSPT 10-15 14:48 → EDTRNSPTSTS 10-15 14:52 → 4W 10-15 15:16
PROVIDERS: Nurse Practitioner; Nurse Practitioner Family; ADMIT Family Medicine
PROC: 0DB78ZX Excision of Stomach, Pylorus, Via Natural or Artificial Opening Endoscopic, Diagnostic (ICD-10-PCS; principal; 2018-10-13)
DX: K25.9 Gastric ulcer, unspecified as acute or chronic, without hemorrhage or perforation (principal); Z68.41 Body mass index [BMI] 40.0-44.9, adult; K20.9 Esophagitis, unspecified; K29.70 Gastritis, unspecified, without bleeding; E11.43 Type 2 diabetes mellitus with diabetic autonomic (poly)neuropathy; K31.84 Gastroparesis; B37.9 Candidiasis, unspecified; J45.909 Unspecified asthma, uncomplicated; M19.90 Unspecified osteoarthritis, unspecified site; K21.9 Gastro-esophageal reflux disease without esophagitis; E11.9 Type 2 diabetes mellitus without complications; Z96.641 Presence of right artificial hip joint; E66.9 Obesity, unspecified; E03.9 Hypothyroidism, unspecified; Z90.49 Acquired absence of other specified parts of digestive tract; Z79.4 Long term (current) use of insulin; Z88.0 Allergy status to penicillin; Z88.8 Allergy status to other drugs, medicaments and biological substances; Z87.891 Personal history of nicotine dependence; Z79.82 Long term (current) use of aspirin; Z79.899 Other long term (current) drug therapy; Z82.5 Family history of asthma and other chronic lower respiratory diseases; Z86.711 Personal history of pulmonary embolism
CPT/HCPCS: 10040; 10045; 62110; 62900; 70005

== ENCOUNTER 2018-10-15 20:22 | Emergency (ER) | payer OTHER ==
[~2018-10-15] VITALS: Ht 165.1 cm; Wt 117.9 kg
[~2018-10-15 20:22] MED LIST changes: +Transderm-Scop 1MG/7 TRANSDERM
[2018-10-15] MEDS ORDERED: PHENERGAN 25 MG25 M1 PO (21:34)
[2018-10-15] MEDS ORDERED: PRILOSEC OTC20 MG PO (21:34)
[2018-10-15 22:16] VITALS: BP 91/48
== END 2018-10-15 22:18 | disposition home or self-care (01) ==
LOC: ER 20:22
DX: K29.70 Gastritis, unspecified, without bleeding (principal); J45.909 Unspecified asthma, uncomplicated; M19.90 Unspecified osteoarthritis, unspecified site; K21.9 Gastro-esophageal reflux disease without esophagitis; E11.9 Type 2 diabetes mellitus without complications; G47.30 Sleep apnea, unspecified; Z87.891 Personal history of nicotine dependence; Z88.0 Allergy status to penicillin; Z88.8 Allergy status to other drugs, medicaments and biological substances; Z90.49 Acquired absence of other specified parts of digestive tract; Z79.4 Long term (current) use of insulin; Z96.641 Presence of right artificial hip joint

== ENCOUNTER 2018-10-17 21:30 | Emergency (ER) | payer OTHER ==
[~2018-10-17] VITALS: Ht 165.1 cm; Wt 117.9 kg
[~2018-10-17 21:30] MED LIST changes: +PHENERGAN 25 MG25 M1 PO; +PRILOSEC OTC20 MG PO
[2018-10-17] MEDS ORDERED: PHENERGAN 25 MG25 M1 PO (21:54)
[2018-10-17] MEDS ORDERED: ONDANSETRON HCL4 M2 PO (21:57)
[2018-10-17] MEDS ORDERED: REGLAN 10 MG TA10 MG PO (22:17)
[2018-10-18 00:02] VITALS: BP 134/81
== END 2018-10-18 00:02 | disposition home or self-care (01) ==
LOC: ER 21:30
DX: R11.2 Nausea with vomiting, unspecified (principal); J45.909 Unspecified asthma, uncomplicated; M19.90 Unspecified osteoarthritis, unspecified site; K21.9 Gastro-esophageal reflux disease without esophagitis; E11.9 Type 2 diabetes mellitus without complications; G47.30 Sleep apnea, unspecified; Z90.49 Acquired absence of other specified parts of digestive tract; Z98.890 Other specified postprocedural states; Z96.641 Presence of right artificial hip joint; Z79.4 Long term (current) use of insulin; Z87.891 Personal history of nicotine dependence; Z88.0 Allergy status to penicillin; Z88.8 Allergy status to other drugs, medicaments and biological substances

== ENCOUNTER 2018-10-21 18:10 | Emergency (ER) | payer OTHER ==
[~2018-10-21] VITALS: Ht 165.1 cm; Wt 117.9 kg
[~2018-10-21 18:10] MED LIST changes: +ONDANSETRON HCL4 M2 PO; +REGLAN 10 MG TA10 MG PO
[2018-10-21 18:59] LABS: HEMATOCRIT 48.5 % (37.0-47.0); HEMOGLOBIN 15.8 gm/dL (12.0-15.0); MCH 29.3 pg (26.0-34.0); MCHC 32.7 g/dL (28.0-37.0); MCV 89.6 fL (80.0-100.0); RBC 5.41 mil/uL (4.20-5.00); RDW 15.2 % (10.5-14.5); WBC 9.5 thou/uL (4.0-11.0)
[2018-10-21 19:03] LABS: ANION GAP 11 mmol/L (7-16); BUN 12 mg/dL (7-18); CALCIUM 9.1 mg/dL (8.5-10.1); CHLORIDE 104 mmol/L (98-107); CO2 24 mmol/L (21-32); CREATININE 1.1 mg/dL (0.6-1.0); GLUCOSE 283 mg/dL (74-106); POTASSIUM 3.5 mmol/L (3.5-5.1); SODIUM 139 mmol/L (136-145)
[2018-10-21 19:14] LABS: ALBUMIN 3.4 g/dL (3.4-5.0); LIPASE 99 U/L (73-393); SGOT 41 U/L (15-37); SGPT 27 U/L (30-65); TOTAL BILIRUBIN 0.7 mg/dL (<0.1-1.0); TOTAL PROTEIN 6.8 g/dL (6.4-8.2); TROPONIN-I <0.06 ng/mL (<0.06)
[2018-10-21 19:41] LABS: URINE BLOOD NEGATIVE (Negative); URINE CLARITY CLEAR; URINE COLOR YELLOW; URINE GLUCOSE-RANDOM* 2+ (Negative); URINE KETONES 1+ (Negative); URINE LEUKOCYTES-REFLEX TRACE (Negative); URINE NITRITE-REFLEX NEGATIVE (Negative); URINE PROTEIN (DIPSTICK) 1+ (Negative); URINE SPECIFIC GRAVITY >= 1.030 (1.005-1.035)
[2018-10-21 19:42] LABS: ICTOTEST (BILI CONFIRMATORY) Negative (Negative); URINE BILIRUBIN NEGATIVE (Negative)
[2018-10-21 19:57] LABS: MUCUS >6 Heavy strn/LPF (None Seen); SQUAMOUS 4-10 Moderate /LPF (0-3)
[2018-10-21 19:58] LABS: BACTERIA-REFLEX None Seen /HPF (None Seen); CASTS None Seen /LPF (None Seen); CRYSTALS None Seen /LPF (None Seen); URINE RBC 3-10 Few /HPF (0-2)
[2018-10-21 22:07] LABS: URINE BILIRUBIN NEGATIVE (Negative); URINE BLOOD NEGATIVE (Negative); URINE CLARITY SL CLOUDY; URINE COLOR YELLOW; URINE GLUCOSE-RANDOM* NEGATIVE (Negative); URINE KETONES NEGATIVE (Negative); URINE LEUKOCYTES NEGATIVE (Negative); URINE NITRITE NEGATIVE (Negative); URINE PROTEIN (DIPSTICK) TRACE (Negative); URINE SPECIFIC GRAVITY <= 1.005 (1.005-1.035)
[2018-10-21 23:48] VITALS: BP 116/56
--- NOTE | 2018-10-22 08:28 | EKG ---
[place] [address] [facility] [place] [address] ELECTROCARDIOGRAM REPORT Name: DEANNA MCGOVERN [facility] [id number] Admission: 10/21/18 Attend Phys: Discharge: 10/21/18 Date of : 46 Report #: [id number] THIS REPORT FOR: //name// [facility] ED Test Date: 2018-10-21 Test Time: 19:39:49 Pat Name: DEANNA MCGOVERN Department: Room: Gender: F Supervisor Counseling And Guidance: DYLAN : 1950 Requested By: Nayeli Cevallos Order Number: [id number] MD: Jairo Peña Measurements Intervals [place] Rate: 77 P: 42 VA: 138 QRS: -14 QRSD: 63 T: 16 QT: 385 QTc: 436 Interpretive Statements Sinus rhythm Nonspecific ST and T wave abnormality Compared to ECG 10/12/2018 15:58:05 no significant change was found Electronically Signed On 10-22-2018 8:28:12 CDT by Jairo Peña [email or web address] <ELECTRONICALLY SIGNED> By: Jairo Peña MD, [facility] 10/22/18 0828 38 38 Jairo Peña MD, FACC /EPI
[2018-10-22] MEDS ORDERED: ZOFRAN ODT4 MG PO (23:53)
== END 2018-10-21 23:49 | disposition home or self-care (01) ==
LOC: ER 18:10
PROVIDERS: Student in an Organized Health Care Education/Training Program
DX: R11.0 Nausea (principal); J45.909 Unspecified asthma, uncomplicated; K21.9 Gastro-esophageal reflux disease without esophagitis; M19.90 Unspecified osteoarthritis, unspecified site; E11.9 Type 2 diabetes mellitus without complications; G47.30 Sleep apnea, unspecified; Z90.49 Acquired absence of other specified parts of digestive tract; Z98.890 Other specified postprocedural states; Z96.641 Presence of right artificial hip joint; Z79.4 Long term (current) use of insulin; Z88.0 Allergy status to penicillin; Z88.8 Allergy status to other drugs, medicaments and biological substances; Z87.891 Personal history of nicotine dependence

== ENCOUNTER 2018-10-22 20:56 | Emergency (ER) | payer OTHER ==
[~2018-10-22] VITALS: Ht 165.1 cm; Wt 117.9 kg
[2018-10-22 22:06] LABS: BASOPHILS 1.2 % (0.0-2.0); EOSINOPHILS 2.3 % (0.0-3.0); HEMATOCRIT 46.3 % (37.0-47.0); HEMOGLOBIN 15.3 gm/dL (12.0-15.0); LYMPHOCYTES 32.3 % (24.0-44.0); MCH 29.2 pg (26.0-34.0); MCHC 32.9 g/dL (28.0-37.0); MCV 88.6 fL (80.0-100.0); MONOCYTES 6.2 % (1.0-8.0); PLATELET COUNT 213 thou/uL (150-400); RBC 5.23 mil/uL (4.20-5.00); RDW 14.6 % (10.5-14.5); WBC 6.8 thou/uL (4.0-11.0)
[2018-10-22 22:16] LABS: ANION GAP 7 mmol/L (7-16); BUN 10 mg/dL (7-18); CALCIUM 8.7 mg/dL (8.5-10.1); CHLORIDE 107 mmol/L (98-107); CO2 25 mmol/L (21-32); CREATININE 0.7 mg/dL (0.6-1.0); GLUCOSE 220 mg/dL (74-106); POTASSIUM 4.5 mmol/L (3.5-5.1); SODIUM 139 mmol/L (136-145)
[2018-10-22 22:24] LABS: ALBUMIN 3.1 g/dL (3.4-5.0); DIRECT BILIRUBIN < 0.1 mg/dL (<0.1-0.3); LIPASE 77 U/L (73-393); SGOT 32 U/L (15-37); SGPT 17 U/L (30-65); TOTAL BILIRUBIN 0.6 mg/dL (<0.1-1.0); TOTAL PROTEIN 6.5 g/dL (6.4-8.2)
[2018-10-22 23:22] LABS: URINE BILIRUBIN 1+ (Negative); URINE BLOOD TRACE (Negative); URINE CLARITY SL CLOUDY; URINE COLOR YELLOW; URINE GLUCOSE-RANDOM* 1+ (Negative); URINE KETONES NEGATIVE (Negative); URINE LEUKOCYTES-REFLEX NEGATIVE (Negative); URINE NITRITE-REFLEX NEGATIVE (Negative); URINE PROTEIN (DIPSTICK) TRACE (Negative); URINE SPECIFIC GRAVITY >= 1.030 (1.005-1.035)
[2018-10-22] MEDS ORDERED: ZOFRAN ODT4 MG PO (23:53)
[2018-10-23 00:04] VITALS: BP 113/67
== END 2018-10-23 00:18 | disposition home or self-care (01) ==
LOC: ER 20:56
PROVIDERS: Emergency Medicine
DX: R11.2 Nausea with vomiting, unspecified (principal); J45.909 Unspecified asthma, uncomplicated; M19.90 Unspecified osteoarthritis, unspecified site; K21.9 Gastro-esophageal reflux disease without esophagitis; E11.9 Type 2 diabetes mellitus without complications; G47.30 Sleep apnea, unspecified; Z87.891 Personal history of nicotine dependence; Z88.0 Allergy status to penicillin; Z88.8 Allergy status to other drugs, medicaments and biological substances; Z90.49 Acquired absence of other specified parts of digestive tract; Z79.4 Long term (current) use of insulin; Z96.641 Presence of right artificial hip joint

== ENCOUNTER 2018-10-24 18:41 | Inpatient (IN) | payer OTHER ==
[~2018-10-24] VITALS: Ht 165.1 cm; Wt 117.9 kg
[~2018-10-24 18:41] MED LIST changes: +ZOFRAN ODT4 MG PO
[2018-10-24 18:55] VITALS: BP 139/87
[2018-10-24 19:27] LABS: HEMOGLOBIN 15.5 gm/dL (12.0-15.0); MCHC 32.3 g/dL (28.0-37.0); MCV 89.7 fL (80.0-100.0); PLATELET COUNT 236 thou/uL (150-400); RBC 5.36 mil/uL (4.20-5.00); RDW 15.5 % (10.5-14.5); WBC 7.1 thou/uL (4.0-11.0)
[2018-10-24 19:36] LABS: CALCIUM 9.1 mg/dL (8.5-10.1); CREATININE 0.9 mg/dL (0.6-1.0); POTASSIUM 3.3 mmol/L (3.5-5.1)
[2018-10-24 19:43] LABS: ALBUMIN 3.3 g/dL (3.4-5.0); TOTAL BILIRUBIN 0.7 mg/dL (<0.1-1.0); TOTAL PROTEIN 6.6 g/dL (6.4-8.2)
[2018-10-24 19:54] LABS: URINE BLOOD TRACE (Negative); URINE CLARITY SL CLOUDY; URINE COLOR YELLOW; URINE GLUCOSE-RANDOM* TRACE (Negative); URINE KETONES TRACE (Negative); URINE LEUKOCYTES 1+ (Negative); URINE NITRITE NEGATIVE (Negative); URINE PROTEIN (DIPSTICK) 1+ (Negative); URINE SPECIFIC GRAVITY >= 1.030 (1.005-1.035)
[2018-10-24 19:59] LABS: ICTOTEST (BILI CONFIRMATORY) Negative (Negative); URINE BILIRUBIN NEGATIVE (Negative)
[2018-10-24 20:02] LABS: SQUAMOUS >10 Many /LPF (0-3)
[2018-10-24 20:03] LABS: YEAST Present (None Seen)
[2018-10-24 20:04] LABS: ABSOLUTE NEUTROPHILS 4.5 thou/uL (1.4-8.2)
[2018-10-24 20:04] LABS: URINE RBC 3-10 Few /HPF (0-2); URINE WBC >25 Many /HPF (0-5)
[2018-10-24 20:05] LABS: ANISOCYTOSIS 1+; POLYCHROMASIA OCCASIONAL
[2018-10-24 20:05] LABS: BACTERIA >30 Many /HPF (None Seen); CASTS None Seen /LPF (None Seen); CRYSTALS None Seen /LPF (None Seen)
[2018-10-24 21:14] VITALS: BP 136/74
[2018-10-24 21:56] VITALS: BP 140/71
[2018-10-24 22:05] VITALS: BP 136/68
--- NOTE | 2018-10-25 01:36 | NUR ---
PATIENT ARRIVED FROM ED VIA CART. WALKED FROM HALLWAY TO BED. UP WITH SBA AND STEADY ON HER FEET. THIS NURSE CONTACTED DR. GIRON FOR ORDERS AND WERE RECEIVED. PATIENT ALERT AND ORIENTED X4. NO SKIN ISSUES. NO EMESIS, HOWEVER, MEDICATED FOR NAUSEA. DENIES PAIN. RESTING AT TIME OF NOTE. WILL MONITOR.
[2018-10-25 03:00] VITALS: BP 128/51
--- NOTE | 2018-10-25 07:31 | NUR ---
PATIENT MEDICATED X2 WITH IV ZOFRAN. NO EMESIS. IVF INFUSING W/O COMPLICATION. RESTING QUIETLY.
[2018-10-25 07:55] VITALS: BP 146/61
--- NOTE | 2018-10-25 10:53 | NUR ---
ASSUMED CARE AT 0700, SHIFT ASSESSMENT DONE, MEDS GIVEN, VSS. REPORTED NAUSEA, DR GIRON INFORMED, INSTRUCED TO GIVE SUCRALFATE EARLIER, GIVEN WITH SOME RELIEF. HOME MEDS RESTARTED. WILL CONTINUE TO ASSESS AND ASSIST WITH ADLs NEEDED.
--- NOTE | 2018-10-25 10:56 | EKG ---
[place] [address] [facility] [place] [address] ELECTROCARDIOGRAM REPORT Name: DEANNA MCGOVERN Room #: 424-P ADM IN M.R.#: [id number] ������������������ Admission: 10/24/18 ������������������ Attend Phys: Raffy Weaver MD Discharge: ������������������ Date of : 46 Report #: [id number] ����������������������������������������������������������������� [id number] THIS REPORT FOR: //name// [facility] ED Test Date: 2018-10-24 Test Time: 19:07:33 Pat Name: DEANNA MCGOVERN Department: Room: [facility] Gender: F Photographer Still: DYLAN : 1950 Requested By: Yolis Dominguez Order Number: [id number] MD: Lion Red Measurements Intervals [place] Rate: 82 P: 19 WI: 190 QRS: -37 QRSD: 115 T: 212 QT: 304 QTc: 355 Interpretive Statements Sinus rhythm Low voltage Probable anterolateral infarct, age indeterm Compared to ECG 10/21/2018 19:39:49 ST (T wave) deviation no longer present Electronically Signed On 10-25-2018 10:55:57 CDT by Lion Red [email or web address] ��������������������������������������������� <ELECTRONICALLY SIGNED> ���������������������������������������� By: Lion Red MD ��������������������������������������������� 10/25/18 1055 06 Lion Red MD /TREY
[2018-10-25 15:47] VITALS: BP 151/77
[2018-10-25 19:38] VITALS: BP 151/69
[2018-10-25 19:49] VITALS: BP 129/84
[2018-10-26 04:42] VITALS: BP 150/84
--- NOTE | 2018-10-26 04:58 | NUR ---
ASSUMED CARE OF PT @1900 PT ASSESSED AT START OF SHIFT A&OX4. UP WITH SBA TO THE BATHROOM HAS FREQ URINATION. DENIES PAIN. C/O N, ZOFRAN GIVEN BUT NO EMESIS NOTED. FLUIDS INFUSING AND IV INTACT IN RT HAND. FALL PREC IN PLACE AND WILL CONT TO MONITOR TILL EOS.
[2018-10-26 08:10] VITALS: BP 136/73
[2018-10-26] MEDS ORDERED: CARAFATE 11 GM/10 M1 PO (08:42)
[2018-10-26] MEDS ORDERED: NYSTATIN100000 UNI SW&SWALLOW (08:42)
--- NOTE | 2018-10-26 09:45 | NUR ---
RD consult received for poor intake. Pt recently discharged last week and readmitted with n/v, severe gastritis is noted. On protonix. No wt change, wt is extreme class III obesity 43.3 BMI. On clear liquids. Follow for ability to advance diet as tolerated, otherwise low nutrition risk
--- NOTE | 2018-10-26 13:44 | NUR ---
PT ADMITTED RELATED TO N/V. CM REVEIWED CHART AND SPOKE WITH CARE TEAM. CM MET WITH PT AT BEDSIDE THIS DAY. PT IS A&O X4. CM ROLE INTRODUCED. PT INDICATED SHE LIVES ALONE IN A HOUSE WITH NO STEPS TO ENTER AND NO STEPS INSIDE. 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 PT INDICATED NO DME BUT THAT SHE HAD BEEN SET UP WITH [facility] IN THE PAST BUT THEY HADN'T SEEN PT YET. PT INDICATED SHE PLANS TO RETURN HOME ONCE MEDICALLY STABLE. CM TO FOLLOW INDICATED WITH DC PLANNING.
[2018-10-26 16:39] VITALS: BP 140/63
[2018-10-26 19:46] VITALS: BP 145/49
--- NOTE | 2018-10-26 21:01 | NUR ---
PATIENT ALERT AND ORIENTED WITH NAUSEA DURING THE DAY BUT NO EMESIS. PATIENT DID NOT FEEL READY TO DISCHARGE TODAY. NOTIFIED AND WILL RE-ASSESS DISCHARGE TOMORROW. PATIENT CONTINUES ON IV FLUIDS WITH ABOUT 100ML PO FLUIDS. PATIENT UP TO WITH SBA TO BATHROOM AND OTHERWISE WAS IN BED MOST OF DAY OR ON EDGE OF BED.
[2018-10-27 04:39] VITALS: BP 145/65
--- NOTE | 2018-10-27 05:50 | NUR ---
ASSUMMED CARE OF PT @1900 PT ASSESSED AT START OF SHIFT A&OX4 DENIES PAIN C/O NAUSEA NO EMESIS NOTED ON CLAER LIQUID DIET. UP WITH SBA ASSIST TO THE BATHROOM. EVENING MEDS GIVEN AND PT NORBERT IT WELL. WILL CONT TO MONITOR TILL EOS.
[2018-10-27 08:18] VITALS: BP 135/59
--- NOTE | 2018-10-27 13:15 | NUR ---
PHYSICIAN INDICATED THAT PT IS MEDICALLY STABLE TO DC HOME THIS DAY. PT IS TO DC HOME WITH NO NEEDS TO SELF CARE. NO OTHER CM INTERVETNION INDICATED. CASE CLOSED.
[2018-10-27 15:45] VITALS: BP 144/65
[2018-10-27 16:34] VITALS: BP 144/65
[2018-10-27 19:18] VITALS: BP 139/54
--- NOTE | 2018-10-27 19:56 | NUR ---
ASSUMED CARE OF PT AT APPROX 0700. PT IS ALERT AND ORIENTED X4, ASSESSMENT CHARTED, ABLE TO MAINTAIN 02 SAT >90 ON RA, EVEN NON LABORED BREATHING AND DENIES SOA. ASSESSMENT CHARTED. PT STATES THAT SHE REMAISN NAUSEOUS BUT IS NOT VOMITING. DR GIRON ORDERED FOR DC OF PATIENT AFTER SUCCEFSULY EATING EVENING MEAL. PT UNABLE TO EWAT DINNER DUE TO INCREASED NAUSEA. BREE WAS NOTIFIED AND ORDERED TO HOLD OFF ON DC AND HE WILL CONSULT GI IN AM. PT AWARE AND IN AGREEMENT. WILL CONT. TO MONITOR.
[2018-10-28 03:40] VITALS: BP 130/49
--- NOTE | 2018-10-28 06:46 | NUR ---
PATIENT ALERT AND ORIENTED X4. UP TO BATHROOM WITH WALKER AND SBA. IVF INFUSING. MEDICATED WITH ONE TIME ORDER OF REGLAN AND VICODIN FOR BACK PAIN. PATIENT SLEPT THROUGHOUT THE NIGHT. PATIENT TO HAVE GI CONSULT TODAY FOR NAUSEA. WILL MONITOR.
[2018-10-28 07:56] VITALS: BP 151/73
--- NOTE | 2018-10-28 10:50 | NUR ---
ASSUMED PT CARE REPORT RECEIVED FORM NURSE. PT IS AOX4, PLEASANT. VSS. ON RA. UP WITH WALKER. CARB CONTROL DIET STARTED THIS AM. PT COMPLAINS OF NAUSEA. ZOFRAN GIVEN. NORCO GIVEN FOR BACK PAIN. GASTRIC EMPTYING STUDY TO BE DONE TOMORROW. HOLDING NORCO FOR TODAY. PT TO BE NPO AFTER MIDNIGHT. INSULIN NOT GIVNE THIS AM SINCE PT DID NOT QUALIFY FOR INSULIN. NS IN L HAND INFUISING WELL. WILL CONTINUE TO MONITOR PT
[2018-10-28 15:46] VITALS: BP 132/70
[2018-10-28 18:55] VITALS: BP 105/60
--- NOTE | 2018-10-29 02:43 | NUR ---
ASSUMED CARE OF PT @1900 PT ASSESSED AT START OF SHIFT IV INTACT AND FLUIDS INFUSING. PT UP AD ABHAY TO THE BATHROOM. EVENING MEDS GIVEN AND PT NORBERT IT WELL. NPO AFTER MIDNIGHT FOR GASTRIC EMTPYING IN THE MORNING. WILL CONT WITH POC TILL EOS.
[2018-10-29 03:53] VITALS: BP 144/63
[2018-10-29 07:00] VITALS: BP 149/67
--- NOTE | 2018-10-29 08:35 | NUR ---
PATIENT AT THIS TIME LEFT UNIT TO GO TO HAVE GASTRIC EMPTYING TEST DONE WILL BE OFF UNIT APROX 4 1/2 HOURS PT HAD NO PAIN OR RESP DISTRESS WHEN SHE LEFT UNIT.
--- NOTE | 2018-10-29 12:17 | NUR ---
PATIENT RETURNED TO ROOM AT THIS TIME. RETURNING STAFF STATED OKAY FOR HER TO RESUME HER DIET. PT STATES NO PAIN OR RESP DISTRESS. ORDERED DIET.
[2018-10-29 15:50] VITALS: BP 130/68
[2018-10-29 20:00] VITALS: BP 128/57
--- NOTE | 2018-10-30 02:56 | NUR ---
ASSESSMENT COMPLETED.PT C/O NAUSEA AND PAIN,MANAGED WITH MED.UP WITH SBA TO THE BR.PT RESTING ON HER BED AT THIS TIME.CALL LIGHT WITHIN REACH.
[2018-10-30 04:00] VITALS: BP 120/65
[2018-10-30] MEDS ORDERED: PANTOPRAZOLE SO40 M1 PO (07:56)
[2018-10-30 08:00] VITALS: BP 128/68
[2018-10-30 14:23] VITALS: BP 144/65
--- NOTE | 2018-10-30 14:31 | NUR ---
DR. GIRON INDICATED THAT PT IS MEDICALLY STABLE TO DC HOME THIS DAY. PHYSICAIN DIDN'T ORDER HH FOR DC. PT IS TO DC HOME WITH NO NEEDS. PT ARRANGING HER OWN TRANSPORT. NO OTHER CM INTERVENTION INDICATED. CASE CLOSED.
--- NOTE | 2018-10-30 14:55 | NUR ---
Assumed pt care at 7am.Pt in bed very quiet but made needs known.Assessment completed.vss.Meds given and well tolerated.Dr Weaver here,dc order noted. Pt tolerated meds and diet.Dc order compiled and reviewed with pt.Rx and dc summary copy given.Saline lock dc'd.At 1455,pt dc home per wc accompanied by systems testing laboratory technician.
== END 2018-10-30 14:53 | disposition home or self-care (01) | DRG 369 ==
LOC: ER 18:41 → 4E 20:41 → EROBS 20:41 → 4E 22:09 → ENTRNSPT 10-29 13:51 → EDTRNSPTSTS 10-29 13:54 → 4E 10-30 14:53
PROVIDERS: Physician Assistant; ADMIT Family Medicine
PROC: 5A09357 Assistance with Respiratory Ventilation, Less than 24 Consecutive Hours, Continuous Positive Airway Pressure (ICD-10-PCS; principal; 2018-10-24)
PROC: 5A09357 Assistance with Respiratory Ventilation, Less than 24 Consecutive Hours, Continuous Positive Airway Pressure (ICD-10-PCS; 2018-10-25)
PROC: 5A09357 Assistance with Respiratory Ventilation, Less than 24 Consecutive Hours, Continuous Positive Airway Pressure (ICD-10-PCS; 2018-10-26)
PROC: 5A09357 Assistance with Respiratory Ventilation, Less than 24 Consecutive Hours, Continuous Positive Airway Pressure (ICD-10-PCS; 2018-10-27)
PROC: 5A09357 Assistance with Respiratory Ventilation, Less than 24 Consecutive Hours, Continuous Positive Airway Pressure (ICD-10-PCS; 2018-10-28)
DX: B37.81 Candidal esophagitis (principal); N39.0 Urinary tract infection, site not specified; F11.20 Opioid dependence, uncomplicated; Z68.41 Body mass index [BMI] 40.0-44.9, adult; E11.43 Type 2 diabetes mellitus with diabetic autonomic (poly)neuropathy; B96.89 Other specified bacterial agents as the cause of diseases classified elsewhere; I10 Essential (primary) hypertension; K31.84 Gastroparesis; J45.909 Unspecified asthma, uncomplicated; M19.90 Unspecified osteoarthritis, unspecified site; E66.9 Obesity, unspecified; E03.9 Hypothyroidism, unspecified; K76.0 Fatty (change of) liver, not elsewhere classified; K21.9 Gastro-esophageal reflux disease without esophagitis; Z96.641 Presence of right artificial hip joint; E86.9 Volume depletion, unspecified; Z82.5 Family history of asthma and other chronic lower respiratory diseases; Z79.82 Long term (current) use of aspirin; Z90.49 Acquired absence of other specified parts of digestive tract; Z79.4 Long term (current) use of insulin; Z88.0 Allergy status to penicillin; Z88.8 Allergy status to other drugs, medicaments and biological substances; Z87.891 Personal history of nicotine dependence; Z79.899 Other long term (current) drug therapy; Z86.711 Personal history of pulmonary embolism
CPT/HCPCS: 10084

== ENCOUNTER 2018-10-31 20:46 | Emergency (ER) | payer OTHER ==
[~2018-10-31] VITALS: Ht 165.1 cm; Wt 117.9 kg
[~2018-10-31 20:46] MED LIST changes: +CARAFATE 11 GM/10 M1 PO; +NYSTATIN100000 UNI SW&SWALLOW
[2018-10-31 21:33] LABS: ABSOLUTE NEUTROPHILS 6.7 thou/uL (1.4-8.2); BASOPHILS 1.2 % (0.0-2.0); EOSINOPHILS 1.1 % (0.0-3.0); HEMATOCRIT 49.4 % (37.0-47.0); HEMOGLOBIN 16.1 gm/dL (12.0-15.0); LYMPHOCYTES 19.8 % (24.0-44.0); MCH 28.9 pg (26.0-34.0); MCHC 32.7 g/dL (28.0-37.0); MCV 88.4 fL (80.0-100.0); MONOCYTES 5.2 % (1.0-8.0); PLATELET COUNT 242 thou/uL (150-400); POLYS 72.7 % (36.0-66.0); RBC 5.59 mil/uL (4.20-5.00); WBC 9.2 thou/uL (4.0-11.0)
[2018-10-31 21:50] LABS: ALBUMIN 3.5 g/dL (3.4-5.0); ANION GAP 13 mmol/L (7-16); BUN 4 mg/dL (7-18); CALCIUM 9.6 mg/dL (8.5-10.1); CHLORIDE 102 mmol/L (98-107); CO2 26 mmol/L (21-32); CREATININE 0.9 mg/dL (0.6-1.0); GLUCOSE 181 mg/dL (74-106); LIPASE 65 U/L (73-393); SGOT 35 U/L (15-37); SGPT 15 U/L (30-65); SODIUM 141 mmol/L (136-145); TOTAL BILIRUBIN 0.7 mg/dL (<0.1-1.0); TROPONIN-I <0.06 ng/mL (<0.06)
[2018-10-31 21:54] LABS: POTASSIUM 2.9 mmol/L (3.5-5.1)
[2018-10-31 23:21] VITALS: BP 124/70
--- NOTE | 2018-11-01 14:29 | EKG ---
[place] [address] [place] [address] ELECTROCARDIOGRAM REPORT Name: DEANNA MCGOVERN [facility] [id number] ������������������ Admission: 10/31/18 ������������������ Attend Phys: Discharge: 10/31/18 ������������������ Date of : 46 Report #: [id number] ����������������������������������������������������������������� [id number] THIS REPORT FOR: //name// [facility] ED Test Date: 2018-10-31 Test Time: 21:45:05 Pat Name: DEANNA MCGOVERN Department: Room: Gender: F Sueding Machine Tender: [place] : 1950 Requested By: Jerad Berrios Order Number: [id number] MD: Jairo Peña Measurements Intervals [place] Rate: 69 P: 46 OR: 138 QRS: -8 QRSD: 58 T: -31 QT: 441 QTc: 473 Interpretive Statements Sinus rhythm Low voltage, precordial leads Anteroseptal infarct, age indeterminate Compared to ECG 10/24/2018 19:07:33 No significant changes Electronically Signed On 11-01-2018 14:29:28 CDT by Jairo Peña [email or web address] ��������������������������������������������� <ELECTRONICALLY SIGNED> ���������������������������������������� By: Jairo Peña MD, [facility] ��������������������������������������������� 11/01/18 1429 44 44 Jairo Peña MD, [facility] /EPI
== END 2018-10-31 23:39 ==
LOC: ER 20:46
PROVIDERS: Emergency Medicine
DX: R11.0 Nausea (principal); J45.909 Unspecified asthma, uncomplicated; M19.90 Unspecified osteoarthritis, unspecified site; K21.9 Gastro-esophageal reflux disease without esophagitis; E11.9 Type 2 diabetes mellitus without complications; G47.30 Sleep apnea, unspecified; Z87.891 Personal history of nicotine dependence; Z88.0 Allergy status to penicillin; Z88.8 Allergy status to other drugs, medicaments and biological substances; Z90.49 Acquired absence of other specified parts of digestive tract; Z96.641 Presence of right artificial hip joint; Z79.4 Long term (current) use of insulin

== ENCOUNTER 2018-11-03 16:20 | Inpatient (IN) | payer OTHER ==
[~2018-11-03] VITALS: Ht 165.1 cm; Wt 108.9 kg
[2018-11-03 16:22] VITALS: BP 126/90
[2018-11-03 16:50] LABS: BASOPHILS 1.2 % (0.0-2.0); EOSINOPHILS 2.1 % (0.0-3.0); HEMATOCRIT 50.6 % (37.0-47.0); HEMOGLOBIN 16.3 gm/dL (12.0-15.0); LYMPHOCYTES 26.2 % (24.0-44.0); MCH 28.6 pg (26.0-34.0); MCHC 32.2 g/dL (28.0-37.0); MCV 88.8 fL (80.0-100.0); MONOCYTES 6.9 % (1.0-8.0); PLATELET COUNT 257 thou/uL (150-400); POLYS 63.6 % (36.0-66.0); WBC 7.9 thou/uL (4.0-11.0)
[2018-11-03 17:04] LABS: ALBUMIN 3.6 g/dL (3.4-5.0); CALCIUM 9.7 mg/dL (8.5-10.1); CREATININE 0.9 mg/dL (0.6-1.0); TOTAL BILIRUBIN 0.9 mg/dL (<0.1-1.0); TOTAL PROTEIN 7.1 g/dL (6.4-8.2)
[2018-11-03 17:08] LABS: POTASSIUM 2.8 mmol/L (3.5-5.1)
[2018-11-03 17:52] LABS: URINE BILIRUBIN 2+ (Negative); URINE BLOOD NEGATIVE (Negative); URINE CLARITY CLEAR; URINE COLOR YELLOW; URINE GLUCOSE-RANDOM* NEGATIVE (Negative); URINE KETONES 1+ (Negative); URINE LEUKOCYTES 1+ (Negative); URINE NITRITE NEGATIVE (Negative); URINE PROTEIN (DIPSTICK) 1+ (Negative)
[2018-11-03 17:57] LABS: ICTOTEST (BILI CONFIRMATORY) Positive (Negative)
[2018-11-03 18:11] LABS: CASTS None Seen /LPF (None Seen); CRYSTALS None Seen /LPF (None Seen); SQUAMOUS >10 Many /LPF (0-3); URINE WBC >25 Many /HPF (0-5)
[2018-11-03 18:12] LABS: URINE RBC None Seen /HPF (0-2)
[2018-11-03 18:39] VITALS: BP 159/79
--- NOTE | 2018-11-03 19:03 | NUR ---
REPORT CALLED TO INPATIENT UNIT, NURSING REFUSED TO TAKE REPORT AT THIS TIME
[2018-11-03 19:45] VITALS: BP 166/87
[2018-11-03 19:58] VITALS: BP 142/70
[2018-11-03 21:32] LABS: ALBUMIN 3.7 g/dL (3.4-5.0); CALCIUM 9.6 mg/dL (8.5-10.1); POTASSIUM 3.1 mmol/L (3.5-5.1); TOTAL BILIRUBIN 0.9 mg/dL (<0.1-1.0); TOTAL PROTEIN 7.2 g/dL (6.4-8.2)
[2018-11-03 23:43] VITALS: BP 128/58
[2018-11-04 04:35] VITALS: BP 141/82
--- NOTE | 2018-11-04 06:36 | NUR ---
PATIENTS CARES WERE ASSUMED AFTER TRANSFER TO THE FLOOR FROM ED, NO NAUSEA AND THE PATIENT DID EAT WELL WHEN SHE GOT HERE. ZERO EMISIS. K+ ELEVATED WELL AFTER TREATMENT. PATIENT ON STAND BY ASSIST. PATIENT IS IN NEED OF A SHOWER. HOURLY ROUNDING WAS DONE. THE BED IS IN A LOW AND LOCK POSITION
[2018-11-04 07:23] VITALS: BP 141/65
--- NOTE | 2018-11-04 08:11 | EKG ---
[address] [address] ELECTROCARDIOGRAM REPORT Name: DEANNA MCGOVERN Room #: 210-P ADM IN M.R.#: [id number] ������������������ Admission: 11/03/18 ������������������ Attend Phys: Raffy Weaver MD Discharge: ������������������ Date of : 46 Report #: [id number] ����������������������������������������������������������������� [id number] THIS REPORT FOR: //name// [facility] ED Test Date: 2018-11-03 Test Time: 16:58:58 Pat Name: DEANNA MCGOVERN Department: Room: 210 Gender: F Roving Technician: GORDON : 1950 Requested By: Gina Nur Order Number: [id number] MD: Kayode Harding Measurements Intervals [place] Rate: 71 P: 44 CA: 142 QRS: -20 QRSD: 83 T: -23 QT: 583 QTc: 634 Interpretive Statements Sinus rhythm Borderline left axis deviation Low voltage, precordial leads Compared to ECG 10/31/2018 21:45:05 Myocardial infarct finding no longer present Electronically Signed On 11-04-2018 8:11:26 CDT by Kayode Harding [email or web address] ��������������������������������������������� <ELECTRONICALLY SIGNED> ���������������������������������������� By: Kayode Harding MD ��������������������������������������������� 11/04/18 0811 1658 1658 Kayode Harding MD /EPI
--- NOTE | 2018-11-04 13:18 | NUR ---
ASSUMED CARE AT SHIFT CHANGE, SR AND VSS. C/O NAUSEA MEDICATED INDICATED.K REPALCED. ASSESMENT CHARTED AND WILL CONTINUE WITH POC.
--- NOTE | 2018-11-04 15:12 | NUR ---
met with patient who admits with nausea. Patient reports lives at home alone. All Needs on one level. She has a walker to use if needed. She is independent with adls and cont to drive. Supportive dtr. Patient with recentl dc [facility] 10/27/2018.
[2018-11-04 15:29] LABS: ALBUMIN 3.5 g/dL (3.4-5.0); CALCIUM 9.2 mg/dL (8.5-10.1); CREATININE 0.9 mg/dL (0.6-1.0); MAGNESIUM 1.5 mg/dL (1.8-2.4); POTASSIUM 3.3 mmol/L (3.5-5.1); TOTAL BILIRUBIN 0.8 mg/dL (<0.1-1.0); TOTAL PROTEIN 6.7 g/dL (6.4-8.2)
[2018-11-04 15:31] VITALS: BP 129/77
[2018-11-04 19:29] VITALS: BP 115/69
[2018-11-05 04:22] VITALS: BP 126/64
--- NOTE | 2018-11-05 04:54 | NUR ---
Assumed pt care at 1900 with no sign of distress noted. Pt is alert and oriented and denies any needs at this time. No family at bedside. Assessment completed and charted. Fall precaution in place. Scheduled meds administered to pt. Pt tolerated PO intake. Pt complains of nausea. Pt is stable. Denies any further needs at this time.
[2018-11-05 05:36] LABS: ALBUMIN 2.9 g/dL (3.4-5.0); CALCIUM 8.7 mg/dL (8.5-10.1); CREATININE 0.8 mg/dL (0.6-1.0); MAGNESIUM 1.6 mg/dL (1.8-2.4); POTASSIUM 3.1 mmol/L (3.5-5.1); TOTAL BILIRUBIN 0.6 mg/dL (<0.1-1.0); TOTAL PROTEIN 5.5 g/dL (6.4-8.2)
[2018-11-05 08:00] VITALS: BP 110/64
[2018-11-05 12:00] VITALS: BP 146/94
[2018-11-05 16:00] VITALS: BP 144/85
[2018-11-05 20:27] VITALS: BP 142/86
[2018-11-06 04:49] VITALS: BP 144/74
--- NOTE | 2018-11-06 04:55 | NUR ---
ASSUMED PT CARE AT 1900. PT IS ALERT AND ORIENTED WITH NO SIGN OF DISTRESS NOTED. FAMILY AT BEDSIDE. PT IS STABLE. ASSESSMENT COMPLETED AND DOCUMENTED. VITAL SIGNS STABLE. SCHEDULED MEDS ADMINISTERED TO PT. DENIES ANY COMPLIANTS OF PAIN. COMPLAINS OF NAUSEA. DENIES ANY FURTHER NEEDS AT THIS TIME.
[2018-11-06 08:00] VITALS: BP 146/70
[2018-11-06 14:41] VITALS: BP 146/70
--- NOTE | 2018-11-06 15:15 | NUR ---
ASSESSMENT CHARTED. PT ALERT AND ORIENTED. VSS. REPORT FEELING BETTER TODAY. SEEN BY DR. GIRON. ORDERS GIVEN TO DISCHARGE PT TO HOME. DISCHARGE INSTRUCTIONS GIVEN TO PT. PT VERBERLIZED UNDERSTANDING.
== END 2018-11-06 15:15 | disposition home or self-care (01) | DRG 641 ==
LOC: ER 16:20 → 2N 18:13 → EROBS 18:13 → 2N 19:45 → ENTRNSPT 11-06 15:03 → EDTRNSPTSTS 11-06 15:05 → 2N 11-06 15:15
PROVIDERS: Emergency Medicine Emergency Medical Services; ADMIT Family Medicine
DX: E87.6 Hypokalemia (principal); N17.9 Acute kidney failure, unspecified; R11.0 Nausea; J45.909 Unspecified asthma, uncomplicated; M19.90 Unspecified osteoarthritis, unspecified site; K21.9 Gastro-esophageal reflux disease without esophagitis; E11.9 Type 2 diabetes mellitus without complications; Z96.641 Presence of right artificial hip joint; E66.9 Obesity, unspecified; E03.9 Hypothyroidism, unspecified; K76.0 Fatty (change of) liver, not elsewhere classified; E86.0 Dehydration; K20.9 Esophagitis, unspecified; Z90.49 Acquired absence of other specified parts of digestive tract; Z79.4 Long term (current) use of insulin; Z88.0 Allergy status to penicillin; Z68.39 Body mass index [BMI] 39.0-39.9, adult; Z88.8 Allergy status to other drugs, medicaments and biological substances; Z87.891 Personal history of nicotine dependence; Z82.5 Family history of asthma and other chronic lower respiratory diseases; Z79.82 Long term (current) use of aspirin; Z79.899 Other long term (current) drug therapy
CPT/HCPCS: 10081

== ENCOUNTER 2018-11-09 17:03 | Emergency (ER) | payer OTHER ==
[~2018-11-09] VITALS: Ht 165.1 cm; Wt 117.9 kg
[2018-11-09 17:58] LABS: BASOPHILS 1.1 % (0.0-2.0); EOSINOPHILS 1.5 % (0.0-3.0); HEMATOCRIT 49.1 % (37.0-47.0); LYMPHOCYTES 27.6 % (24.0-44.0); MCH 28.9 pg (26.0-34.0); MCHC 32.6 g/dL (28.0-37.0); MCV 88.8 fL (80.0-100.0); MONOCYTES 7.6 % (1.0-8.0); PLATELET COUNT 232 thou/uL (150-400); POLYS 62.2 % (36.0-66.0); RBC 5.52 mil/uL (4.20-5.00); RDW 15.3 % (10.5-14.5); WBC 6.5 thou/uL (4.0-11.0)
[2018-11-09 18:05] LABS: ANION GAP 14 mmol/L (7-16); BUN 10 mg/dL (7-18); CALCIUM 9.8 mg/dL (8.5-10.1); CHLORIDE 103 mmol/L (98-107); CO2 25 mmol/L (21-32); GLUCOSE 218 mg/dL (74-106); SODIUM 142 mmol/L (136-145)
[2018-11-09 18:15] LABS: MAGNESIUM 1.6 mg/dL (1.8-2.4); TROPONIN-I <0.06 ng/mL (<0.06)
[2018-11-09] MEDS ORDERED: PYRIDOXINE HCL50 MG PO (18:37)
[2018-11-09 20:38] VITALS: BP 179/80
[2018-11-10] MEDS ORDERED: HYDROXYZINE HCL25 M2 PO (22:40)
[2018-11-10] MEDS ORDERED: VITAMIN B-625 MG PO (22:40)
[2018-11-10] MEDS ORDERED: PRILOSEC OTC20 MG PO (22:43)
--- NOTE | 2018-11-11 07:54 | EKG ---
[address] [address] ELECTROCARDIOGRAM REPORT Name: DEANNA MCGOVERN [facility] [id number] Admission: 11/09/18 Attend Phys: Discharge: 11/09/18 Date of : 46 Report #: [id number] THIS REPORT FOR: //name// [facility] ED Test Date: 2018-11-09 Test Time: 17:32:08 Pat Name: DEANNA MCGOVERN Department: Room: Gender: F Coating Machine Feeder: : 1950 Requested By: Jerad Berrios Order Number: [id number] MD: Kayode Harding Measurements Intervals [place] Rate: 82 P: 46 FL: 145 QRS: -25 QRSD: 59 T: -28 QT: 537 QTc: 628 Interpretive Statements Sinus rhythm Borderline left axis deviation Anterior infarct, age indeterminate Prolonged QT interval Compared to ECG 11/03/2018 16:58:58 Myocardial infarct finding now present Prolonged QT interval now present Electronically Signed On 11-11-2018 7:54:44 CDT by Kayode Harding [email or web address] <ELECTRONICALLY SIGNED> By: Kayode Harding MD 11/11/18 0754 1732 1732 Kayode Harding MD /EPI
== END 2018-11-09 20:40 | disposition home or self-care (01) ==
LOC: ER 17:03
PROVIDERS: Emergency Medicine
DX: E87.6 Hypokalemia (principal); E83.42 Hypomagnesemia; E53.1 Pyridoxine deficiency; I45.81 Long QT syndrome; M25.532 Pain in left wrist; J45.909 Unspecified asthma, uncomplicated; M19.90 Unspecified osteoarthritis, unspecified site; K21.9 Gastro-esophageal reflux disease without esophagitis; G47.30 Sleep apnea, unspecified; E11.9 Type 2 diabetes mellitus without complications; Z79.4 Long term (current) use of insulin; Z96.641 Presence of right artificial hip joint; Z90.49 Acquired absence of other specified parts of digestive tract; Z88.0 Allergy status to penicillin; Z88.8 Allergy status to other drugs, medicaments and biological substances; Z87.891 Personal history of nicotine dependence; W18.39XA Other fall on same level, initial encounter; Y93.89 Activity, other specified; Y92.481 Parking lot as the place of occurrence of the external cause; Y99.8 Other external cause status

== ENCOUNTER 2018-11-10 21:42 | Emergency (ER) | payer OTHER ==
[~2018-11-10] VITALS: Ht 165.1 cm; Wt 117.9 kg
[~2018-11-10 21:42] MED LIST changes: +PYRIDOXINE HCL50 MG PO
[2018-11-10] MEDS ORDERED: HYDROXYZINE HCL25 M2 PO (22:40)
[2018-11-10] MEDS ORDERED: VITAMIN B-625 MG PO (22:40)
[2018-11-10] MEDS ORDERED: PRILOSEC OTC20 MG PO (22:43)
[2018-11-10 22:58] VITALS: BP 135/84
== END 2018-11-10 22:58 | disposition home or self-care (01) ==
LOC: ER 21:42
DX: R11.0 Nausea (principal); J45.909 Unspecified asthma, uncomplicated; M19.90 Unspecified osteoarthritis, unspecified site; E11.9 Type 2 diabetes mellitus without complications; K21.9 Gastro-esophageal reflux disease without esophagitis; G47.30 Sleep apnea, unspecified; E66.9 Obesity, unspecified; Z68.41 Body mass index [BMI] 40.0-44.9, adult; Z79.4 Long term (current) use of insulin; Z90.49 Acquired absence of other specified parts of digestive tract; Z96.641 Presence of right artificial hip joint; Z87.891 Personal history of nicotine dependence; Z88.0 Allergy status to penicillin; Z88.8 Allergy status to other drugs, medicaments and biological substances

== ENCOUNTER 2018-11-12 20:32 | Emergency (ER) | payer OTHER ==
[~2018-11-12] VITALS: Ht 165.1 cm; Wt 117.9 kg
[~2018-11-12 20:32] MED LIST changes: +HYDROXYZINE HCL25 M2 PO; +VITAMIN B-625 MG PO
[2018-11-12] MEDS ORDERED: PHENERGAN 25 MG25 M1 PO (22:41)
[2018-11-12 23:11] VITALS: BP 138/88
== END 2018-11-12 23:12 | disposition home or self-care (01) ==
LOC: ER 20:32
DX: R11.0 Nausea (principal); E11.9 Type 2 diabetes mellitus without complications; Z90.49 Acquired absence of other specified parts of digestive tract; Z79.4 Long term (current) use of insulin; Z88.0 Allergy status to penicillin; Z88.8 Allergy status to other drugs, medicaments and biological substances; Z87.891 Personal history of nicotine dependence

== ENCOUNTER 2018-12-02 13:37 | Inpatient (IN) | payer OTHER ==
[~2018-12-02] VITALS: Ht 165.1 cm; Wt 103.9 kg
[2018-12-02 13:46] VITALS: BP 96/47
[2018-12-02 14:51] LABS: ABSOLUTE NEUTROPHILS 7.9 thou/uL (1.4-8.2); BASOPHILS 0.8 % (0.0-2.0); EOSINOPHILS 0.8 % (0.0-3.0); HEMATOCRIT 49.2 % (37.0-47.0); HEMOGLOBIN 15.9 gm/dL (12.0-15.0); LYMPHOCYTES 21.1 % (24.0-44.0); MCH 28.4 pg (26.0-34.0); MCHC 32.2 g/dL (28.0-37.0); MCV 88.2 fL (80.0-100.0); MONOCYTES 5.5 % (1.0-8.0); POLYS 71.8 % (36.0-66.0); RBC 5.57 mil/uL (4.20-5.00); RDW 14.8 % (10.5-14.5); WBC 11.1 thou/uL (4.0-11.0)
[2018-12-02 15:04] LABS: ALBUMIN 3.2 g/dL (3.4-5.0); CALCIUM 9.2 mg/dL (8.5-10.1); CREATININE 1.2 mg/dL (0.6-1.0); DIRECT BILIRUBIN 0.1 mg/dL (<0.1-0.3); TOTAL BILIRUBIN 0.6 mg/dL (<0.1-1.0); TOTAL PROTEIN 6.3 g/dL (6.4-8.2)
[2018-12-02 15:09] LABS: POTASSIUM 2.7 mmol/L (3.5-5.1)
[2018-12-02 15:18] LABS: PLATELET COUNT 251 thou/uL (150-400)
[2018-12-02 17:43] LABS: URINE BLOOD NEGATIVE (Negative); URINE CLARITY CLEAR; URINE COLOR YELLOW; URINE GLUCOSE-RANDOM* 2+ (Negative); URINE KETONES TRACE (Negative); URINE LEUKOCYTES-REFLEX NEGATIVE (Negative); URINE NITRITE-REFLEX NEGATIVE (Negative); URINE PROTEIN (DIPSTICK) 2+ (Negative); URINE SPECIFIC GRAVITY >= 1.030 (1.005-1.035)
[2018-12-02 17:51] LABS: ICTOTEST (BILI CONFIRMATORY) Negative (Negative); URINE BILIRUBIN NEGATIVE (Negative)
[2018-12-02 18:02] LABS: CRYSTALS None Seen /LPF (None Seen); HYALINE CASTS 0-3 Few /LPF (None Seen); SQUAMOUS 4-10 Moderate /LPF (0-3)
[2018-12-02 18:03] LABS: BACTERIA-REFLEX 1-9 Few /HPF (None Seen); MUCUS >6 Heavy strn/LPF (None Seen); URINE RBC None Seen /HPF (0-2); URINE WBC-REFLEX None Seen /HPF (0-5)
[2018-12-02 18:27] VITALS: BP 115/65
[2018-12-02 19:26] VITALS: BP 134/66
[2018-12-02 19:47] VITALS: BP 110/79
[2018-12-02 21:19] LABS: MAGNESIUM 1.5 mg/dL (1.8-2.4)
[2018-12-02 21:20] LABS: POTASSIUM 2.8 mmol/L (3.5-5.1)
[2018-12-02 23:52] VITALS: BP 137/90
[2018-12-03 05:05] VITALS: BP 149/96
--- NOTE | 2018-12-03 05:31 | NUR ---
PT ARRIVED TO UNIT APPROX 1945, ADMISSION AND ASSESSMENT COMPLETED, CONSENTS SIGNED INCLUDING TELEMTRY DISCLOSURE. PT IS A&Ox4 BUT SLIGHTLY SLOW/DROWSY WITH RESPONSES AND A POOR HISTORIAN. REPORTS HAVING SOME NAUSEA BUT DENIES EMESIS. REPORTS USING CPAP AT HOME, OBTAINED ORDERS TO USE CPAP OVERNIGHT BUT PT DID NOT TOLERATE THE MASK; RT PLACED PT ON 2L O2 NC OVERNIGHT ALONG WITH A CONTINUOUS PULSE OX. C/O CHRONIC BACK PAIN, HAVE GIVEN PRN NORCO x2 OVERNIGHT. SB-SR ON TELE, HR 56-70. STARTED ON ACHS ACCUCHECKS, GAVE 10 UNITS LANTUS AT HS. REDRAW OF POTASSIUM AT 2100 WAS 2.8; PER PHYSICIAN, STARTED PT ON ELECTROLYTE PROTOCOL, GAVE AN ORAL DOSE OF MAGNESIUM AND STARTED TWO BAGS OF IV POTASSIUM; PT C/O SIGNIFICANT DISCOMFORT D/T IV BEING IN THE HAND, HAVE RUN AT A MUCH SLOWER RATE OVERNIGHT. NO OTHER CONCERNS, WILL CONTINUE TO MONITOR.
[2018-12-03 07:41] VITALS: BP 144/73
--- NOTE | 2018-12-03 09:15 | EKG ---
[address] [place] [address] ELECTROCARDIOGRAM REPORT Name: DEANNA MCGOVERN Room #: 358-P ADM IN M.R.#: [id number] Admission: 12/02/18 Attend Phys: Raffy Weaver MD Discharge: Date of : 46 Report #: [id number] THIS REPORT FOR: //name// [facility] ED Test Date: 2018-12-02 Test Time: 15:52:32 Pat Name: DEANNA MCGOVERN Department: Room: 358 Gender: F Technical Manager: : 1950 Requested By: Jesus Alberto Reed Order Number: [id number] MD: Jairo Peña Measurements Intervals [place] Rate: 79 P: 67 MN: 146 QRS: 31 QRSD: 66 T: QT: 492 QTc: 565 Interpretive Statements Sinus rhythm Low voltage Abnormal R-wave progression, late transition Nonspecific ST and T wave abnormality Prolonged QT interval Compared to ECG 11/09/2018 17:32:08 No significant change was found Electronically Signed On 12-03-2018 9:14:50 CDT by Jairo Peña [email or web address] <ELECTRONICALLY SIGNED> By: Jairo Peña MD, FACC 12/03/18 0914 1552 1552 Jairo Peña MD, [facility] /EPI
[2018-12-03 12:05] LABS: MAGNESIUM 1.8 mg/dL (1.8-2.4); POTASSIUM 3.1 mmol/L (3.5-5.1)
[2018-12-03 15:33] VITALS: BP 112/52
--- NOTE | 2018-12-03 18:18 | NUR ---
ASSUMED CARE OF PT AT 0700. PT ALERT AND ORIENTED X3 IN NO ACUTE DISTRESS. COMPLAINING OF CHRONIC BACK PAIN - WELL CONTROLLED WITH CURRENT MED REGIMEN. APPETITE IMPROVING. BLOOD SUGARS STABLE. UP W/ 1 ASSIST TO BSC. WILL CONT TO MONITOR.
[2018-12-03 19:50] VITALS: BP 120/61
[2018-12-04 04:15] VITALS: BP 117/60
--- NOTE | 2018-12-04 04:50 | NUR ---
SLEPT MOST OF SHIFT. UP TO COMODE WITH MODERATE ASSIST. PAIN MEDICATION GIVEN NEEDED FOR CHRONIC BACK PAIN. WORKING ON GOALS AND PLAN OF CARE FOR NOC. PROGRESSING TOWARDS DISCHARGE GOALS SLOWLY. ORIENTED X4 BUT FORGETFUL AT TIMES. CONTINUE TO ASSES CLOSELY.
[2018-12-04 07:39] VITALS: BP 113/68
--- NOTE | 2018-12-04 12:52 | NUR ---
PT ADMITTED RELATED TO [place], HYPOKALEMIA, AND VOLUME DEPLETION. PT IS TO FAMILIAR TO CM FROM PREVIOUS ADMISSIONS. CM REVEIWED CHART AND SPOKE WITH CARE TEAM. CM MET WITH PT AT BEDSIDE THIS DAY. PT IS A&O X4. CM ROLE INTRODUCED. PT INDICATED SHE LIVES ALONE IN A HOUSE WITH NO STEPS TO ENTER AND NO STEPS INSIDE. 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 PT INDICATED SHE HAD A FWW IS NEEDED UPON DC. PT INDICATED SHE PLANS TO RETURN HOME ONCE MEDICALLY STABLE. CM TO FOLLOW INDICATED WITH DC PLANNING.
[2018-12-04 15:15] VITALS: BP 117/63
[2018-12-04 15:26] LABS: MAGNESIUM 1.7 mg/dL (1.8-2.4); POTASSIUM 3.4 mmol/L (3.5-5.1)
--- NOTE | 2018-12-04 17:01 | NUR ---
Assumed care approx. 0700 this AM. Patient has reported nausea, but no vomiting almost all shift. Patient awaiting consult with GI to figure out plan of care. IV zofran administered twice thus far with not much relief. Dr. Weaver gave orders for phenergan 25 mg suppository-will offer to patient as option for nausea. Magnesium of 1.7 and potassium of 3.4 replaced orally per electrolyte protocols. Redraw of labs ordered for 1999 this evening. Flu vaccine administered this AM per pt request. Will continue to monitor. Pt not progressing toward goals at this time as pt still has sustained nausea.
[2018-12-04 20:06] VITALS: BP 146/82
[2018-12-04 20:24] LABS: MAGNESIUM 1.7 mg/dL (1.8-2.4); POTASSIUM 3.4 mmol/L (3.5-5.1)
--- NOTE | 2018-12-05 02:57 | NUR ---
SLEPT MOST OF SHIFT. ASSISTED WITH BED BATH AND LININS CHANGED. COMPLAINTS OF CHRONIC BACK PAIN FREQUENTLY, HYDROCODONE GIVEN WITH NOTED RELIEF. COMPLAINTS OF NAUSEA PRIOR TO BEDTIME. NAUSEA BETTER TONIGHT. ASSIST TO REPOSITION NEEDED. ASSIST UP TO COMODE NEEDED WITH 1X ASSIST. WORKING ON GOALS AND PLAN OF CARE FOR NOC. NOT PROGRESSING TOWARDS DISCHARGE GOALS AT THIS TIME. CONTINUE TO ASSES CLOSELY. ENCOURAGE INCREASE ACTIVITY.
[2018-12-05 03:47] VITALS: BP 158/78
[2018-12-05 05:02] LABS: MAGNESIUM 1.6 mg/dL (1.8-2.4); POTASSIUM 3.1 mmol/L (3.5-5.1)
[2018-12-05 07:15] VITALS: BP 128/59
[2018-12-05 11:16] VITALS: BP 119/55
--- NOTE | 2018-12-05 11:26 | HC ---
[facility] [place] [address] CONSULTATION Name: DEANNA MCGOVERN Room #: 358-P ADM IN M.R.#: [id number] Admission: 12/02/18 Attend Phys: Raffy Weaver MD Discharge: Date of : 48 Report #: [id number] THIS REPORT FOR: //name// CC: Raffy Weaver MD DATE OF SERVICE: 12/04/2018 HISTORY OF PRESENT ILLNESS: The patient is a 68-year-old female with chronic nausea. She has had a fairly extensive workup and has tried multiple medications apparently without much improvement. Her nausea has been ongoing for several months. She denies any obvious change in her diet or medications at that time. She has had an upper endoscopy on 10/13/2018, which showed some white plaques in the distal esophagus, may be representing Stephanie versus food residual, gastritis was noted. Biopsies were negative for H. pylori. Small amount of residual food was noted in the stomach. The patient was treated for Stephanie. She has been on omeprazole. She has tried Zofran without much improvement. She has had multiple ER visits apparently. As far as imaging, a CT scan of her head was performed on 11/06/2018 showing mild atrophy, no acute changes. MRCP on 11/05/2018 normal for post-cholecystectomy patient. Common bile duct was mildly prominent. No filling defects were noted in the common bile duct. CT arteriogram on 11/04/2018, no significant mesenteric artery stenosis to suggest ischemia. CT scan of the abdomen and pelvis on 11/03/2018, previous cholecystectomy changes, distal body tail of the pancreas absent. No acute changes. Gastric emptying study 10/28/2018 was normal. The patient currently denies any vomiting. She denies any dysphagia. She says her appetite is fairly good. She states she has not been losing weight. She currently denies any chest pain or shortness of breath. PAST MEDICAL HISTORY: Chronic nausea as described above, diabetes, obesity, previous cholecystectomy, asthma, history of perforated colon with partial colectomy apparently, spinal fusion, sleep apnea, right total hip replacement, previous appendectomy, arthritis, hernia repair, gastroesophageal reflux disease. ALLERGIES: PENICILLIN, PREDNISONE. REVIEW OF SYSTEMS: As per HPI. FAMILY HISTORY: Negative for colon cancer. MEDICATIONS ON ADMISSION: Vici, Zofran p.r.n., vitamin B6, Prilosec, paroxetine, aspirin, insulin, Pradaxa, scopolamine patch, Phenergan p.r.n. SOCIAL HISTORY: No history of tobacco use. She reports 1-2 units of alcohol per week. [address] [address] CONSULTATION Name: DEANNA MCGOVERN Room #: 358-P [facility] IN M.R.#: [id number] Admission: 12/02/18 Attend Phys: Raffy Weaver MD Discharge: Date of : 48 Report #: [id number] PHYSICAL EXAMINATION: VITAL SIGNS: Temperature is 97.5, pulse 75, blood pressure 117/63, respiratory rate is 18. GENERAL: She is alert and oriented times 3, in no acute distress. HEENT: Sclerae nonicteric. Oropharynx clear. NECK: Supple, without lymphadenopathy. CARDIOVASCULAR: Regular rate and rhythm. CHEST: Clear to auscultation anteriorly bilaterally. ABDOMEN: Soft, obese, nontender, normoactive bowel sounds. EXTREMITIES: No cyanosis, clubbing or edema. LABORATORY DATA: Sodium is 141, potassium 3.4, chloride 101, bicarbonate 27, BUN 7, creatinine 1.2, glucose 250, AST 38, lipase 107, total bilirubin 0.6, alkaline phosphatase 101, ALT is 19, total protein 6.3, albumin 3.2. WBC is 11.1, hemoglobin 15.9, platelet count is 251. ASSESSMENT AND PLAN: Chronic nausea. Etiology is unclear. The patient has had extensive workup including multiple imaging, essentially has been negative. Upper endoscopy was also performed. Although gastric emptying study was normal, I would consider a trial of Reglan as this may be helpful. We will start 5 mg orally before meals. I explained the potential side effects to the patient. She understands and agrees. She denies any emesis. Her weight has actually been stable at this time. We will continue to follow. Thank you for allowing me to participate in her care. <ELECTRONICALLY SIGNED> By: Sen Dhaliwal MD 12/05/18 1126 [id number] [id number] Sen Dhaliwal MD /nt
[2018-12-05 11:28] LABS: ALBUMIN 3.1 g/dL (3.4-5.0); CALCIUM 9.5 mg/dL (8.5-10.1); TOTAL BILIRUBIN 0.6 mg/dL (<0.1-1.0); TOTAL PROTEIN 6.4 g/dL (6.4-8.2)
[2018-12-05 11:39] LABS: MAGNESIUM 1.7 mg/dL (1.8-2.4); POTASSIUM 3.3 mmol/L (3.5-5.1)
[2018-12-05 15:12] VITALS: BP 127/60
--- NOTE | 2018-12-05 15:56 | NUR ---
PT FINALLY REPORTS DECREASE IN NAUSEA AFTER NOON REGLAN DOSE ADMINISTERED...NO EMESIS NOTED...
[2018-12-05 19:56] VITALS: BP 134/70
[2018-12-06 03:43] VITALS: BP 133/71
[2018-12-06 05:39] LABS: ABSOLUTE NEUTROPHILS 2.9 thou/uL (1.4-8.2); BASOPHILS 0.8 % (0.0-2.0); EOSINOPHILS 2.4 % (0.0-3.0); HEMATOCRIT 45.8 % (37.0-47.0); HEMOGLOBIN 14.8 gm/dL (12.0-15.0); LYMPHOCYTES 29.3 % (24.0-44.0); MCH 28.5 pg (26.0-34.0); MCHC 32.2 g/dL (28.0-37.0); MCV 88.3 fL (80.0-100.0); MONOCYTES 9.3 % (1.0-8.0); PLATELET COUNT 160 thou/uL (150-400); POLYS 58.2 % (36.0-66.0); RBC 5.18 mil/uL (4.20-5.00); RDW 15.1 % (10.5-14.5)
[2018-12-06 07:13] VITALS: BP 144/86
[2018-12-06 10:54] VITALS: BP 114/81
[2018-12-06 12:49] LABS: ALBUMIN 2.7 g/dL (3.4-5.0); CALCIUM 9.4 mg/dL (8.5-10.1); CREATININE 0.9 mg/dL (0.6-1.0); PHOSPHORUS 3.6 mg/dL (2.5-4.9); POTASSIUM 3.6 mmol/L (3.5-5.1); TOTAL BILIRUBIN 0.3 mg/dL (<0.1-1.0); TOTAL PROTEIN 5.9 g/dL (6.4-8.2)
[2018-12-06 15:18] VITALS: BP 115/68
[2018-12-06 19:40] VITALS: BP 115/58
[2018-12-07 01:05] LABS: GLYCOHEMOGLOBIN (HGB A1C) 9.2 % (4.8-5.6)
[2018-12-07 03:30] VITALS: BP 111/56
[2018-12-07 07:50] VITALS: BP 130/82
--- NOTE | 2018-12-07 09:17 | HC ---
[facility] [place] [address] CONSULTATION Name: DEANNA MCGOVERN Room #: 358-P [facility] IN M.R.#: [id number] Admission: 12/02/18 Attend Phys: Raffy Weaver MD Discharge: Date of : 48 Report #: [id number] THIS REPORT FOR: //name// CC: Raffy Weaver MD DATE OF SERVICE: 12/06/2018 ENDOCRINE CONSULTATION CONSULTING PHYSICIAN: Dr. Valencia. REASON FOR CONSULTATION: Hypothyroidism, type 2 diabetes mellitus. HISTORY OF PRESENT ILLNESS: This is a 68-year-old female patient whose medical background is significant for multiple medical issues including type 2 diabetes mellitus, hypothyroidism, GERD, obesity and hypertension. The patient was admitted a few days ago due to intractable issues with nausea, but with limited vomiting. As noted above, the patient has had hypothyroidism for many years and reports her most recent levothyroxine dose to be 150 mcg daily. The patient says that she has been compliant with this medication in general, but cannot rule out that it might have not gone through intermittently. Also, she could not specify as to whether or not she was taking on an empty stomach and whether she was waiting 30-60 minutes before eating or taking other medications. The patient has felt overall a bit more fatigued, tired and believes she has gained a little bit of weight. No major skin or hair changes. Has some cold intolerance. The patient also has type 2 diabetes mellitus for many years and is currently on Lantus insulin. While she did not seem certain as to what her home dose is, she believes it is 10 units at night. Also, when I asked her whether she was taking Jardiance and Kombiglyze for diabetes, she said she did not think she was taking any pills for diabetes anymore and again could not specify why she had those cut off. It does not seem that the patient monitors her blood glucose values regularly. The patient has hypertension, hyperlipidemia and is on active therapy for both. REVIEW OF SYSTEMS: CONSTITUTIONAL: Fatigue, tiredness, but not fever or chills or significant body weight changes other than a few pound gain. HEENT: Negative for sinus soreness, ear drainage. PULMONARY: Occasional shortness of breath and cough, but no hemoptysis. CARDIAC: Negative for chest pain, palpitation, but noted for intermittent issues with lower extremity edema. [address] [address] CONSULTATION Name: DEANNA MCGOVERN Room #: 358-P [facility] IN M.R.#: [id number] Admission: 12/02/18 Attend Phys: Raffy Weaver MD Discharge: Date of : 48 Report #: [id number] GASTROINTESTINAL: Intractable nausea, occasional vomiting, abdominal discomfort. No major changes in bowel movement frequency. MUSCULOSKELETAL: Intermittent arthralgia and myalgia. NEUROLOGY: Noted for intermittent dizziness, lightheadedness, but no seizure activity or loss of consciousness. SKIN: Negative for rash, ulceration or major abnormalities. PSYCHIATRIC: A bit of a down mood, but no hallucinations. No delusions. Otherwise, review of systems is noncontributory other than what is mentioned in HPI. PAST MEDICAL HISTORY: 1. Type 2 diabetes mellitus. 2. Hypertension. 3. Hyperlipidemia. 4. Hypothyroidism. 5. Obesity. 6. GERD. 7. Asthma. 8. Osteoarthritis. 9. Obstructive sleep apnea. PAST SURGICAL HISTORY: Appendectomy, rotator cuff surgery, femoral fracture from avascular necrosis, hernia repair, cholecystectomy, right total hip replacement, colectomy for perforated colon, spinal fusion. ALLERGIES: PENICILLIN and PREDNISONE. OUTPATIENT MEDICATIONS: Include Lantus insulin 10 units q.p.m., levothyroxine 150 mcg daily, enalapril 10 mg daily, simvastatin 20 mg daily, Jardiance 25 mg daily, question of possible use of Kombiglyze 2.5-1000 mg b.i.d. FAMILY HISTORY: Noncontributory. SOCIAL HISTORY: The patient denies use of tobacco, alcohol or illicit drugs. PHYSICAL EXAMINATION: GENERAL: Pleasant female patient who is not in apparent pain or distress. VITAL SIGNS: Blood pressure is 114/81 mmHg, heart rate is 71 beats per minute, respirations 20 per minute, temperature 37 degrees Celsius. CONSTITUTIONAL: She is lying in bed, appears comfortable, not in apparent distress. HEENT: Anicteric sclerae. Intact extraocular motions. NECK: Supple, without JVD, carotid bruits or lymphadenopathy. I do not appreciate thyromegaly. CHEST: Shows moderate air entry bilaterally with scattered rales. No wheeze or [facility] [address] [place] [address] CONSULTATION Name: DEANNA MCGOVERN Room #: 358-P ADM IN M.R.#: [id number] Admission: 12/02/18 Attend Phys: Raffy Weaver MD Discharge: Date of : 48 Report #: [id number] crackles. HEART: Regular rate and rhythm without murmurs or gallops. ABDOMEN: Obese, but soft and lax without tenderness or organomegaly. No guarding. Active bowel sounds. EXTREMITIES: Lower extremity exam trace ankle edema bilaterally. Pedal pulses are appreciated. No skin breaks, ulcerations or other major deformities. NEUROLOGIC: Awake, alert and oriented to time, place and person. The remainder of her examination is nonfocal. PSYCHIATRIC: Flat mood and affect. LABORATORY RESULTS: Blood glucose values over the past 24 hours have consistently been over 200 mg/dL with occasional drops into the 180s. No hypoglycemia was recorded. Otherwise, sodium 142, potassium 3.3, chloride 103, CO2 of 21, anion gap of 18, BUN 9, creatinine 1.0, lipase 107, total bilirubin 0.6, calcium 9.5, magnesium 1.7, alkaline phosphatase 106, ALT 17, total protein 6.4, albumin 3.1, GFR 55. Lactic acid 1.7. CPK 166. Troponin not detectable. INR 1.0. White blood count 5.0, hemoglobin 14.8, hematocrit 45.8, platelets 160. TSH 95.57. Vitamin B12 441. Random cortisol on 11/06/2018 was 12.7. Vitamin D was 16.1 in 04/2018. ASSESSMENT AND PLAN: 1. Hypothyroidism. As noted above, this is a chronic health issue. TSH obtained during this current stay is indicative of severe hypothyroidism, which in view of her aggressive levothyroxine dosage strongly reflective of the possibility of noncompliance, intermittent lapses and intake, or inappropriate method of intake. This was discussed with the patient at length and I counseled her about the importance of consistent and adherent intake of levothyroxine as well as about the proper methodology of taking levothyroxine including to do so on an empty stomach and wait 30-60 minutes before the intake of other medicines or food items which she seemed to understand well. As to whether or not, we need to revise her dosage at the time being, will be better understood once I get a free T4 to get an objective notion for her thyroid levels are at the present time. I will order a free T4 and free T3 and decide as to whether or not to maintain the current dose afterwards. 2. Type 2 diabetes mellitus. The patient has had type 2 diabetes mellitus for many years and was quite vague about what she actually does at home for type 2 diabetes mellitus including as to whether or not she actually is utilizing oral antidiabetic agents. During this hospital stay, she was placed on Lantus 10 units q.p.m. and is not under adequate control. What I will do is raised this dosage to 18 units q.p.m., place the patient on Humalog supplemental scale low dose intensity and add linagliptin 5 mg daily to assist with her control. Also, I will order hemoglobin A1c to better understand her overall level of control. 3. Hypertension. The patient's level of blood pressure control is adequate on the current regimen, she is to continue with the same. 4. Hyperlipidemia. The patient is on a stable regimen of atorvastatin and tolerates it well, she is to continue with the same. [address] [address] CONSULTATION Name: SHANIQUADEANNA Room #: 358-P ADM IN M.R.#: [id number] Admission: 12/02/18 Attend Phys: Raffy Weaver MD Discharge: Date of : 48 Report #: [id number] I certainly appreciate the opportunity to participate in the care of Dr. Valencia's and Dr. Weaver's patient. <ELECTRONICALLY SIGNED> By: Baldev Matamoros MD 12/07/18 0917 1218 1422 Baldev Matamoros MD /nt
--- NOTE | 2018-12-07 09:19 | EKG ---
[address] [place] [employer] [place] [address] ELECTROCARDIOGRAM REPORT Name: DEANNA MCGOVERN Room #: 358- ADM IN M.R.#: [id number] Admission: 12/02/18 Attend Phys: Raffy Weaver MD Discharge: Date of : 48 Report #: [id number] THIS REPORT FOR: //name// [facility] Test Date: 2018-12-06 Test Time: 10:11:04 Pat Name: DEANNA MCGOVERN Department: Room: 358 Gender: F Epic Professional: Shon DELEON : 1950 Requested By: Clemencia Valencia Order Number: [id number] MD: Jairo Peña Measurements Intervals [place] Rate: 70 P: 39 RI: 143 QRS: -8 QRSD: 82 T: 15 QT: 462 QTc: 499 Interpretive Statements Sinus rhythm Low voltage, precordial leads Borderline prolonged QT interval Compared to ECG 12/02/2018 15:52:32 No significant change was found Electronically Signed On 12-07-2018 9:19:43 CDT by Jairo Peña [email or web address] <ELECTRONICALLY SIGNED> By: Jairo Peña MD, FAC 12/07/18 0919 1011 1011 Jairo Peña MD, [facility] /EPI
[2018-12-07 11:16] VITALS: BP 136/75
[2018-12-07 16:35] VITALS: BP 121/74
[2018-12-07 18:25] VITALS: BP 133/69
--- NOTE | 2018-12-07 18:47 | NUR ---
ASSUMED CARE @ 1815, REPORT RECIEVED FROM SOFYA BENJAMIN (3W). PT ALERT AND ORIENTED, PT ARRIVED ON THE UNIT WITH THE ASSIST OF NURSING STAFF, WITHOUT COMPLICATIONS, DAUGHTER AT BEDSIDE. VSS, WILL CONTINUE TO MONITOR.
--- NOTE | 2018-12-07 20:20 | NUR ---
pt is A&O X3, PT's n/v can control by medications at most of time, pt 's vs are stable , pt was transfered to M/S at 1800pm.
[2018-12-07 20:39] VITALS: BP 123/73
--- NOTE | 2018-12-08 04:37 | NUR ---
ASSUMED CARE OF PT AT SHIFT CHANGE. ASSESSMENT CHARTED. MEDICATIONS GIVEN PER APR. PT IS A&OX4, VSS. PT VOICES PAIN AT LOWER BACK. PT DENIES ANY ABDOMINAL PAIN. PT REPORTS NO NAUSEA AFTER ZOFRAN GIVEN BY RN. PT REPORTS NO BM SINCE 12/03. PT REFUSES SCD'S. PT'S MAIN COMPLAINT IS PAIN. PT VOICES THAT HER CURRENT PAIN MEDICATION PROVIDES LITTLE RELIEF. WILL CONTINUE TO MONITOR PT. WILL CONTINUE TO FOLLOW POC.
[2018-12-08 05:48] VITALS: BP 154/63
[2018-12-08 07:09] VITALS: BP 145/87
[2018-12-08 08:09] VITALS: BP 145/87
[2018-12-08] MEDS ORDERED: REGLAN 5 MG TAB5 MG PO (09:40)
[2018-12-08] MEDS ORDERED: REMERON15 MG PO (09:40)
--- NOTE | 2018-12-08 12:27 | NUR ---
Received awake on bed. Due medications given as prescribed, able to swallow meds w/o difficulty. A+O. Complained of nausea- due PRN pain meds given as prescribed. On room air. On blood sugar monitoring- taken and recorded accordingly; with sliding scale insulin- given as prescribed. With SL at R Upper arm- intact and flushing well. Able to ambulate to the bathroom, on standby assist, using gait belt. Vital signs stable. Seen by Dr Wevaer this AM- pending discharge, for OT/PT evaluation- possible SNF- CM aware.
--- NOTE | 2018-12-08 13:50 | NUR ---
Following for d/c planning needs. Spoke with physician this morning. . Pt is medically ready for d/c. Pt has orders for PT and OT. Pt went to [facility] on previous d/c from the hospital. Spoke with pt and she is agreeable to go to SNF. Pt was given choices and wants to go to [facility]. Asked associate merchandise planner to fax referral. Will await return call re: bed availability and acceptance.
--- NOTE | 2018-12-08 14:14 | NUR ---
FAXED REFERRAL TO [facility] SPOKE WITH TIM IN ADM SHE RECEIVED REFERRAL AND CAN ACCEPT PT TODAY.
--- NOTE | 2018-12-08 14:55 | NUR ---
PT IS ACCEPTED AT [facility] FAXED DC ORDERS/SUMMARY TO FACILITY SPOKE WITH TIM IN ADM SHE RECEIVED DC ORDERS AND ARRANGED WC VAN TRANSPORT FOR 1500 TODAY. NOTIFIED PT'S DTR (MANDEEP) OF DC AND TIME OF TRANSPORT. UNIT NOTIFIED AND CHART COPY PER US. RN TO CALL REPORT TO [phone].
== END 2018-12-08 16:09 | DRG 682 ==
LOC: ER 13:37 → 3W 17:26 → EROBS 17:26 → 4S 17:26 → 3W 19:28 → 4S 12-07 18:18
PROVIDERS: Emergency Medicine; Internal Medicine; ADMIT Family Medicine
DX: N17.0 Acute kidney failure with tubular necrosis (principal); G93.41 Metabolic encephalopathy; E87.1 Hypo-osmolality and hyponatremia; E87.6 Hypokalemia; E66.9 Obesity, unspecified; E11.22 Type 2 diabetes mellitus with diabetic chronic kidney disease; N18.3 Chronic kidney disease, stage 3 (moderate); J45.909 Unspecified asthma, uncomplicated; K21.9 Gastro-esophageal reflux disease without esophagitis; M19.90 Unspecified osteoarthritis, unspecified site; Z96.641 Presence of right artificial hip joint; E86.9 Volume depletion, unspecified; E03.9 Hypothyroidism, unspecified; I12.9 Hypertensive chronic kidney disease with stage 1 through stage 4 chronic kidney disease, or unspecified chronic kidney disease; E78.5 Hyperlipidemia, unspecified; G47.33 Obstructive sleep apnea (adult) (pediatric); E83.42 Hypomagnesemia; E11.65 Type 2 diabetes mellitus with hyperglycemia; K76.0 Fatty (change of) liver, not elsewhere classified; Z68.38 Body mass index [BMI] 38.0-38.9, adult; Z90.49 Acquired absence of other specified parts of digestive tract; Z98.1 Arthrodesis status; Z79.899 Other long term (current) drug therapy; Z79.4 Long term (current) use of insulin; Z88.8 Allergy status to other drugs, medicaments and biological substances; Z88.0 Allergy status to penicillin; Z87.891 Personal history of nicotine dependence; Z79.82 Long term (current) use of aspirin; Z91.19 Patient's noncompliance with other medical treatment and regimen; Z23 Encounter for immunization
CPT/HCPCS: 10102; 10879

== ENCOUNTER 2019-01-31 19:14 | Emergency (ER) | payer OTHER ==
[~2019-01-31] VITALS: Ht 165.1 cm; Wt 95.3 kg
[2019-01-31 20:20] LABS: ABSOLUTE NEUTROPHILS 8.7 thou/uL (1.4-8.2); BASOPHILS 0.8 % (0.0-2.0); EOSINOPHILS 0.6 % (0.0-3.0); HEMATOCRIT 46.1 % (37.0-47.0); HEMOGLOBIN 14.9 gm/dL (12.0-15.0); LYMPHOCYTES 18.2 % (24.0-44.0); MCH 28.2 pg (26.0-34.0); MCHC 32.4 g/dL (28.0-37.0); MONOCYTES 7.1 % (1.0-8.0); PLATELET COUNT 269 thou/uL (150-400); POLYS 73.3 % (36.0-66.0); RBC 5.31 mil/uL (4.20-5.00); RDW 14.8 % (10.5-14.5); WBC 11.9 thou/uL (4.0-11.0)
[2019-01-31 20:30] LABS: ANION GAP 8 mmol/L (7-16); BUN 19 mg/dL (7-18); CALCIUM 10.4 mg/dL (8.5-10.1); CHLORIDE 105 mmol/L (98-107); CO2 28 mmol/L (21-32); CREATININE 0.9 mg/dL (0.6-1.0); GLUCOSE 151 mg/dL (74-106); POTASSIUM 4.3 mmol/L (3.5-5.1); SODIUM 141 mmol/L (136-145)
[2019-01-31 20:41] LABS: ALBUMIN 3.5 g/dL (3.4-5.0); LIPASE 88 U/L (73-393); SGOT 26 U/L (15-37); SGPT 28 U/L (30-65); TOTAL BILIRUBIN 0.7 mg/dL (<0.1-1.0); TOTAL PROTEIN 7.3 g/dL (6.4-8.2); TROPONIN-I <0.06 ng/mL (<0.06)
[2019-01-31 21:31] LABS: URINE BILIRUBIN NEGATIVE (Negative); URINE BLOOD TRACE (Negative); URINE CLARITY CLEAR; URINE COLOR YELLOW; URINE GLUCOSE-RANDOM* 3+ (Negative); URINE KETONES 1+ (Negative); URINE LEUKOCYTES-REFLEX NEGATIVE (Negative); URINE NITRITE-REFLEX NEGATIVE (Negative); URINE PROTEIN (DIPSTICK) NEGATIVE (Negative); URINE UROBILINOGEN 0.2 E.U./dl (0.2-1.0)
[2019-01-31] MEDS ORDERED: PHENERGAN 25 MG25 M1 PO (21:38)
[2019-01-31 21:55] VITALS: BP 116/68
--- NOTE | 2019-02-01 07:56 | EKG ---
[place] [address] [address] [facility] [place] [address] ELECTROCARDIOGRAM REPORT Name: DEANNA MCGOVERN Room #: [facility]#: [id number] Admission: 01/31/19 Attend Phys: Discharge: 01/31/19 Date of : 48 Report #: [id number] THIS REPORT FOR: //name// [facility] ED Test Date: 2019-01-31 Test Time: 19:58:14 Pat Name: DEANNA MCGOVERN Department: Room: Gender: F Painting Supervisor: [facility] : 1950 Requested By: Candy Coats Order Number: [id number] MD: Jairo Peña Measurements Intervals [place] Rate: 100 P: 32 PA: 128 QRS: 13 QRSD: 82 T: 35 QT: 351 QTc: 453 Interpretive Statements Sinus tachycardia Low voltage Abnormal R-wave progression, late transition Borderline T abnormalities, anterior leads Baseline wander in lead(s) V1 Compared to ECG 12/06/2018 10:11:04 heart rate has increased Electronically Signed On 02-01-2019 7:55:51 HARNESS PLACER by Jairo Peña [email or web address] <ELECTRONICALLY SIGNED> By: Jairo Peña MD, FAC 02/01/19 [facility]5 57 57 Jairo Peña MD, [facility] /EPI
== END 2019-01-31 21:55 | disposition home or self-care (01) ==
LOC: ER 19:14
PROVIDERS: Nurse Practitioner Family
DX: R11.0 Nausea (principal); E11.9 Type 2 diabetes mellitus without complications; E66.9 Obesity, unspecified; J45.909 Unspecified asthma, uncomplicated; K21.9 Gastro-esophageal reflux disease without esophagitis; G47.30 Sleep apnea, unspecified; M19.90 Unspecified osteoarthritis, unspecified site; Z68.34 Body mass index [BMI] 34.0-34.9, adult; Z87.891 Personal history of nicotine dependence; Z90.49 Acquired absence of other specified parts of digestive tract; Z96.641 Presence of right artificial hip joint; Z79.4 Long term (current) use of insulin; Z88.0 Allergy status to penicillin; Z88.8 Allergy status to other drugs, medicaments and biological substances

== ENCOUNTER 2019-02-04 16:44 | Emergency (ER) | payer OTHER ==
[~2019-02-04] VITALS: Ht 162.6 cm; Wt 95.3 kg
[2019-02-04 17:19] LABS: ABSOLUTE NEUTROPHILS 8.3 thou/uL (1.4-8.2); BASOPHILS 0.7 % (0.0-2.0); EOSINOPHILS 0.5 % (0.0-3.0); HEMATOCRIT 48.2 % (37.0-47.0); HEMOGLOBIN 15.6 gm/dL (12.0-15.0); LYMPHOCYTES 21.8 % (24.0-44.0); MCH 28.3 pg (26.0-34.0); MCHC 32.4 g/dL (28.0-37.0); MCV 87.1 fL (80.0-100.0); MONOCYTES 6.6 % (1.0-8.0); PLATELET COUNT 287 thou/uL (150-400); POLYS 70.4 % (36.0-66.0); RBC 5.54 mil/uL (4.20-5.00); RDW 14.7 % (10.5-14.5); WBC 11.8 thou/uL (4.0-11.0)
[2019-02-04 17:25] LABS: CALCIUM 10.6 mg/dL (8.5-10.1); POTASSIUM 3.6 mmol/L (3.5-5.1)
[2019-02-04 17:34] LABS: TOTAL BILIRUBIN 0.6 mg/dL (<0.1-1.0)
[2019-02-04 17:35] LABS: MAGNESIUM 1.9 mg/dL (1.8-2.4); TROPONIN-I <0.06 ng/mL (<0.06)
[2019-02-04 17:35] LABS: ALBUMIN 3.8 g/dL (3.4-5.0); TOTAL PROTEIN 7.7 g/dL (6.4-8.2)
[2019-02-04 18:11] VITALS: BP 105/48
== END 2019-02-04 18:19 | disposition home or self-care (01) ==
LOC: ER 16:44
PROVIDERS: Emergency Medicine
DX: R11.0 Nausea (principal); R10.9 Unspecified abdominal pain; E11.9 Type 2 diabetes mellitus without complications; J45.909 Unspecified asthma, uncomplicated; K21.9 Gastro-esophageal reflux disease without esophagitis; M19.90 Unspecified osteoarthritis, unspecified site; G47.30 Sleep apnea, unspecified; Z90.49 Acquired absence of other specified parts of digestive tract; Z96.641 Presence of right artificial hip joint; Z79.4 Long term (current) use of insulin; Z87.891 Personal history of nicotine dependence; Z88.0 Allergy status to penicillin; Z88.8 Allergy status to other drugs, medicaments and biological substances

== ENCOUNTER 2019-02-08 08:33 | Emergency (ER) | payer OTHER ==
[~2019-02-08] VITALS: Ht 165.1 cm; Wt 95.3 kg
[2019-02-08 09:17] LABS: URINE BLOOD 1+ (Negative); URINE CLARITY CLOUDY; URINE COLOR YELLOW; URINE GLUCOSE-RANDOM* 3+ (Negative); URINE KETONES 2+ (Negative); URINE NITRITE-REFLEX NEGATIVE (Negative); URINE PROTEIN (DIPSTICK) TRACE (Negative); URINE SPECIFIC GRAVITY 1.015 (1.005-1.035)
[2019-02-08 09:19] LABS: URINE LEUKOCYTES-REFLEX 1+ (Negative)
[2019-02-08 09:20] LABS: ICTOTEST (BILI CONFIRMATORY) Negative (Negative); URINE BILIRUBIN NEGATIVE (Negative)
[2019-02-08 09:29] LABS: SQUAMOUS 4-10 Moderate /LPF (0-3)
[2019-02-08 09:30] LABS: CASTS None Seen /LPF (None Seen); CRYSTALS None Seen /LPF (None Seen); URINE RBC 3-10 Few /HPF (0-2)
[2019-02-08 09:31] LABS: YEAST-REFLEX Present (None Seen)
[2019-02-08 09:43] LABS: HEMATOCRIT 47.7 % (37.0-47.0); HEMOGLOBIN 15.4 gm/dL (12.0-15.0); MCH 28.2 pg (26.0-34.0); MCHC 32.3 g/dL (28.0-37.0); MCV 87.3 fL (80.0-100.0); RBC 5.46 mil/uL (4.20-5.00); RDW 14.6 % (10.5-14.5); WBC 11.3 thou/uL (4.0-11.0)
[2019-02-08 09:46] LABS: ANION GAP 14 mmol/L (7-16); BUN 20 mg/dL (7-18); CALCIUM 10.5 mg/dL (8.5-10.1); CHLORIDE 102 mmol/L (98-107); CO2 23 mmol/L (21-32); CREATININE 1.2 mg/dL (0.6-1.0); GLUCOSE 144 mg/dL (74-106); POTASSIUM 3.9 mmol/L (3.5-5.1); SODIUM 139 mmol/L (136-145)
[2019-02-08 09:56] LABS: ALBUMIN 3.8 g/dL (3.4-5.0); MAGNESIUM 1.8 mg/dL (1.8-2.4); SGOT 26 U/L (15-37); SGPT 26 U/L (30-65); TOTAL BILIRUBIN 0.6 mg/dL (<0.1-1.0); TOTAL PROTEIN 7.4 g/dL (6.4-8.2); TROPONIN-I <0.06 ng/mL (<0.06)
[2019-02-08] MEDS ORDERED: MACROBID 100 M100 M1 PO (10:11)
[2019-02-08 11:51] VITALS: BP 99/63
--- NOTE | 2019-02-11 12:55 | EKG ---
[address] [address] ELECTROCARDIOGRAM REPORT Name: DEANNA MCGOVERN Room #: [facility]#: [id number] Admission: 02/08/19 Attend Phys: Discharge: 02/08/19 Date of : 46 Report #: [id number] THIS REPORT FOR: //name// [facility] ED Test Date: 2019-02-08 Test Time: 08:41:46 Pat Name: DEANNA MCGOVERN Department: Room: Gender: F [place] Roofer Helper: REY : 1950 Requested By: Basilio Orellana Order Number: [id number] MD: Kayode Harding Measurements Intervals [place] Rate: 100 P: 36 [place]: 129 QRS: 28 QRSD: 81 T: 32 QT: 330 QTc: 426 Interpretive Statements Sinus tachycardia Low voltage, precordial leads Baseline wander in lead(s) V5 Compared to ECG 01/31/2019 19:58:14 T-wave abnormality no longer present Electronically Signed On 02-11-2019 12:54:51 BUSINESS ASSISTANT by Kayode Harding [email or web address] <ELECTRONICALLY SIGNED> By: Kayode Harding MD 02/11/19 1254 0841 0841 Kayode Harding MD /EPI
== END 2019-02-08 12:30 | disposition home or self-care (01) ==
LOC: ER 08:33
PROVIDERS: Emergency Medicine
DX: E86.0 Dehydration (principal); T44.3X5A Adverse effect of other parasympatholytics [anticholinergics and antimuscarinics] and spasmolytics, initial encounter; N39.0 Urinary tract infection, site not specified; M19.90 Unspecified osteoarthritis, unspecified site; J45.909 Unspecified asthma, uncomplicated; E11.9 Type 2 diabetes mellitus without complications; G47.30 Sleep apnea, unspecified; Z90.49 Acquired absence of other specified parts of digestive tract; Z96.641 Presence of right artificial hip joint; Z79.4 Long term (current) use of insulin; Z88.0 Allergy status to penicillin; Z88.8 Allergy status to other drugs, medicaments and biological substances; Z87.891 Personal history of nicotine dependence; Y92.89 Other specified places as the place of occurrence of the external cause

== ENCOUNTER 2019-02-11 18:29 | Inpatient (IN) | payer OTHER ==
[~2019-02-11] VITALS: Ht 165.1 cm; Wt 92.9 kg
[~2019-02-11 18:29] MED LIST changes: +MACROBID 100 M100 M1 PO
[2019-02-11 18:34] VITALS: BP 89/60
[2019-02-11 19:31] LABS: URINE BLOOD TRACE (Negative); URINE CLARITY CLEAR; URINE GLUCOSE-RANDOM* 2+ (Negative); URINE KETONES 2+ (Negative); URINE LEUKOCYTES-REFLEX NEGATIVE (Negative); URINE NITRITE-REFLEX NEGATIVE (Negative); URINE PROTEIN (DIPSTICK) NEGATIVE (Negative); URINE SPECIFIC GRAVITY 1.025 (1.005-1.035)
[2019-02-11 19:36] LABS: ICTOTEST (BILI CONFIRMATORY) Negative (Negative); URINE BILIRUBIN NEGATIVE (Negative); URINE COLOR DARK YELLOW
[2019-02-11 20:12] LABS: MCH 28.9 pg (26.0-34.0); MCHC 31.4 g/dL (28.0-37.0); MCV 92.1 fL (80.0-100.0); PLATELET COUNT 58 thou/uL (150-400); RBC 1.38 mil/uL (4.20-5.00); RDW 15.1 % (10.5-14.5); WBC 2.9 thou/uL (4.0-11.0)
[2019-02-11 20:14] LABS: HEMATOCRIT 12.7 % (37.0-47.0)
[2019-02-11 20:35] LABS: ABSOLUTE NEUTROPHILS 2.6 thou/uL (1.4-8.2)
[2019-02-11 20:36] LABS: ANISOCYTOSIS 1+
[2019-02-11 21:19] LABS: ABSOLUTE NEUTROPHILS 9.4 thou/uL (1.4-8.2); BASOPHILS 0.5 % (0.0-2.0); EOSINOPHILS 0.4 % (0.0-3.0); HEMATOCRIT 46.2 % (37.0-47.0); LYMPHOCYTES 13.8 % (24.0-44.0); MCV 87.4 fL (80.0-100.0); MONOCYTES 7.5 % (1.0-8.0); POLYS 77.8 % (36.0-66.0); RBC 5.29 mil/uL (4.20-5.00); RDW 14.7 % (10.5-14.5)
[2019-02-11 21:21] LABS: HEMOGLOBIN 14.8 gm/dL (12.0-15.0); PLATELET COUNT 225 thou/uL (150-400); WBC 12.1 thou/uL (4.0-11.0)
[2019-02-11 21:31] LABS: ALBUMIN 3.4 g/dL (3.4-5.0); ANION GAP 20 mmol/L (7-16); BUN 21 mg/dL (7-18); CALCIUM 10.2 mg/dL (8.5-10.1); CHLORIDE 105 mmol/L (98-107); CO2 14 mmol/L (21-32); CREATININE 0.8 mg/dL (0.6-1.0); DIRECT BILIRUBIN < 0.1 mg/dL (<0.1-0.2); GLUCOSE 87 mg/dL (74-106); LIPASE 115 U/L (73-393); POTASSIUM 3.8 mmol/L (3.5-5.1); SGOT 38 U/L (15-37); SGPT 20 U/L (30-65); SODIUM 139 mmol/L (136-145); TOTAL BILIRUBIN 0.5 mg/dL (<0.1-1.0); TROPONIN-I <0.06 ng/mL (<0.06)
[2019-02-11 22:22] VITALS: BP 106/61
[2019-02-11 22:35] VITALS: BP 98/51
--- NOTE | 2019-02-11 22:45 | NUR ---
Pt. admitted to the unit from the emergency room accompanied by staff. She is alert and oriented times three. Assisted to the bedside comode several times during admission process. This nurse bladder scanned pt. at 224 mls. Pt. does transfer to the bedside comode with one assist. Admission assessment and history is completed. Bed alarm is on.
[2019-02-11 23:52] VITALS: BP 94/54
--- NOTE | 2019-02-12 04:59 | NUR ---
Pt. c/o some nausea and feels the zofran does not help. Spoke to Dr. Weaver earlier with new order for phenergan suppository. Pt. did rest quietly during the night when checked on during frequent rounds. No need for phenergan so far this am. Bed alarm is on.
--- NOTE | 2019-02-12 07:36 | NUR ---
CALLED 4W AND INFORMED GELACIO OF THE PT'S MICRO REPORT AT THIS TIME.
[2019-02-12 07:48] VITALS: BP 101/61
--- NOTE | 2019-02-12 11:55 | NUR ---
PT A&OX3, VSS, DENIES PAIN. C/O OF NAUSEA NO VOMITING OR DIARRHEA. PATIENT ATE BREAKFAST. ABDOMINAL ULTRASOUND COMPLETED. NO SIGNS OF DISTRESS. WILL CONTINUE TO MONITOR.
--- NOTE | 2019-02-12 13:14 | NUR ---
PT ADMITTED RELATED TO NAUSEA,VOMITING,REQUENT FALLS,DEHYDRATION. CM REVIEWED CHART AND SPOKE WITH CARE TEAM. CM MET WITH PT AT BEDSIDE THIS DAY PT IS FAMILIAR TO CM FROM PREVIOUS ADMISSIONS. PT INDICATED SHE LIVES IN A HOUSE ALONE AND THAT SHE HAD A FWW THAT SHE CAN USE AT HOME. PT INDICATED THAT SHE HAD RECENTLY DISCHARGED HOME FROM [facility] AND THAT SHE HAD [facility]. PT INDICATED SHE PLAND TO RETURN HOME AND [facility] HH SERVICES ONCE MEDICALLY STABLE. CM RECIEVED PC FROM [facility] WITH [employer] PHONE: FAX: HOME CARE SHE INDICATED THAT PT HAS A NURSE 4HRS PER DAY AND A DRAG DOWN 6HRS PER DAY THROUGH THEM. CM SPOKE WITH LEONIDAS AT [facility] AND SHE INDICATED THAT PT IS ACTIVE WITH THEM. CM TO NOTIFY BOTH UPON DC FOR RESUME SERVICES. CM ATTEMPTED PC TO PT'S DTR [facility] [employer] SET UP. CM SPOKE WITH PHYSICAIN AND HE INDICATED HE ANTICIPATES PT STAYING THROUGH THE WEEKEND. CM TO FOLLOW INDICATED WITH DC PLANNING.
[2019-02-12 14:42] VITALS: BP 121/67
--- NOTE | 2019-02-12 15:03 | EKG ---
[address] [address] ELECTROCARDIOGRAM REPORT Name: DEANNA MCGOVERN Room #: 453-P ADM IN M.R.#: [id number] Admission: 02/11/19 Attend Phys: Raffy Weaver MD Discharge: Date of : 46 Report #: [id number] THIS REPORT FOR: //name// [facility] ED Test Date: 2019-02-11 Test Time: 18:53:43 Pat Name: DEANNA MCGOVERN Department: Room: [facility] Gender: F Tender Labor: GORDON : 1950 Requested By: Jesus Alberto Reed Order Number: [id number] MD: Kayode Harding Measurements Intervals [place] Rate: 104 P: 61 [place]: 133 QRS: 17 QRSD: 85 T: 48 QT: 337 QTc: 444 Interpretive Statements Sinus tachycardia Low voltage, precordial leads Compared to ECG 02/08/2019 08:41:46 No significant changes Electronically Signed On 02-12-2019 15:02:50 REFRIGERATION SPECIALIST by Kayode Harding [email or web address] <ELECTRONICALLY SIGNED> By: Kayode Harding MD 02/12/19 1502 52 52 Kayode Harding MD /TREY
[2019-02-12 16:35] VITALS: BP 105/66
[2019-02-12 19:33] VITALS: BP 109/56
--- NOTE | 2019-02-13 04:07 | NUR ---
ASSUMED CARE OF PT AT 1900HRS. PT IS AOX3 AND LETS NEEDS BE KNOWN. FALL PRECAUTION IN PLACE. PT COMPLAINED OF NAUSEA AND PAIN. PRN MEDS WERE USED. NO VOMITING NOTED THIS SHIFT. PT WAS ABLE TO ALMITA COMFORTABLE AND SLEEP PART OF THE SHIT. VSS AND NO OTHER S/S OF ACUTE DISTRESS. WILL CONTINUE TO MONITOR.
[2019-02-13 08:00] VITALS: BP 125/56
[2019-02-13 09:05] LABS: HEMATOCRIT 42.2 % (37.0-47.0); HEMOGLOBIN 13.6 gm/dL (12.0-15.0); MCH 27.9 pg (26.0-34.0); MCHC 32.2 g/dL (28.0-37.0); MCV 86.6 fL (80.0-100.0); RBC 4.88 mil/uL (4.20-5.00); RDW 14.7 % (10.5-14.5); WBC 6.4 thou/uL (4.0-11.0)
[2019-02-13 09:13] LABS: CALCIUM 9.2 mg/dL (8.5-10.1); CREATININE 0.7 mg/dL (0.6-1.0)
--- NOTE | 2019-02-13 10:43 | NUR ---
PT A&OX4, VSS, DENIES PAIN. PATIENT HAS CHRONIC NAUSEA, MEDICATION GIVEN. PATIENT IN RECLINER FOR BREAKFAST. FLUIDS RUNNING, IV PATENT. NO SIGNS OF DISTRESS. WILL CONTINUE TO MONITOR.
[2019-02-13 15:00] VITALS: BP 103/63
[2019-02-13 20:22] VITALS: BP 111/49
--- NOTE | 2019-02-14 04:36 | NUR ---
PROGRESS PT A/O X 3 FORGETFUL OF TIME. CONTINUES TO REPORT NAUSEA TAKING ZOFRAN IVP NEEDED WITH LITTLE EFFECT. TOOK TYLENOL FOR ABDOMINAL PAIN SHE RATED AN 8 SLEPT FOR AWHILE AFTER. UP WITH SBA TO BSC VOIDING QS AND HAD AN EXTRA LARGE FORMED BM. TOLERATING WATER, BUT DECLINES ANYTHING ELSE TO EAT. IVF'S INFUSING ORDERED. CONTINUE POC.
[2019-02-14 09:10] VITALS: BP 122/59
[2019-02-14 14:53] VITALS: BP 134/59
[2019-02-14 19:03] VITALS: BP 112/60
--- NOTE | 2019-02-14 19:26 | NUR ---
ASSUMED CARE AROUND 0715. AXOX3. DRONABINOL CHANGED TO QID PER . POTASSIUM REPLACED PER MD. NO S/S ACUTE DISTRESS NOTED OR REPORTED AT THIS TIME. WILL CONT TO MONITOR FOR ANY CHANGES IN CONDITION.
[2019-02-15] MEDS ORDERED: MARINOL 2.5 MG2.5 M1 PO (07:11)
[2019-02-15] MEDS ORDERED: SYNTHROID175 MCG PO (07:12)
--- NOTE | 2019-02-15 07:52 | NUR ---
progress pt up ad destinee voiding qs, passing flatus and having stools. tolerating clear liquids in adequate amounts. bs positive abdomen less rounded and a lot softer. pt still rates pain a 10 at times but down to 7 on reassessment and taking a little less medication. ambulating in halls with family and walking to bathroom. hopes to dc home today.
--- NOTE | 2019-02-15 08:08 | NUR ---
progress pt still c/o of nausea zofran and pyroxidine given with no effect did drink some tea and ate 8 saltine crackers. up voiding qs reports abdominal pain that is slightly helped with tylenol. possible dc home today.
[2019-02-15 08:26] VITALS: BP 139/75
--- NOTE | 2019-02-15 09:10 | NUR ---
ASSUMED CARE OF THE PT AT 0845 AM. PT IS ALERT AND ORIENTED X4. LUNG SOUNDS ARE CLEAR. PT IS VERY FATIGUED UPON STANDING AND USES BEDSIDE COMMODE. RADIAL PULSES ARE STRONG. SKING IS DRY AND INTACT WITH MINIMAL SCARS AND BRUISING. FALL PRECAUTIONS ARE IN PLACE, BED IS IN THE LOWEST POSITION AND CALL LIGHT IS WITHIN REACH. PT IS TO BE DISCHARGED BACK TO HOME LIVING RESIDENCE. WILL CONTINUE TO MONIOR THE PT.
[2019-02-15 09:12] VITALS: BP 139/75
[2019-02-15 09:42] VITALS: BP 139/75
--- NOTE | 2019-02-15 10:10 | NUR ---
DISCHARGE ORDERS COMPLETED. PATIENT DISCHARGING TO HOME WITH [facility] AND [facility]. DISCHARGE/HOME HEALTH ORDERS FAXED TO [facility]. CALL PLACED TO LEONIDAS TO NOTIFY. DISCHARGE ORDERS FAXED TO [facility]. CALL PLACED TO KATELYN TO NOTIFY. UNIT SW AWARE.
--- NOTE | 2019-02-15 11:57 | HC ---
[facility] [place] [address] CONSULTATION Name: DEANNA MCGOVERN Room #: 452-P [facility] IN M.R.#: [id number] Admission: 02/11/19 Attend Phys: Raffy Weaver MD Discharge: Date of : 46 Report #: [id number] THIS REPORT FOR: //name// CC: Raffy Weaver DATE OF SERVICE: 02/14/2019 ENDOCRINE CONSULTATION CONSULTING PHYSICIAN: Dr. Weaver. REASON FOR CONSULTATION: Uncontrolled type 2 diabetes mellitus, hypothyroidism. HISTORY OF PRESENT ILLNESS: This is a 68-year-old female patient whose medical background is significant for multiple medical issues including type 2 diabetes mellitus, hypothyroidism, and hypertension. The patient has had longstanding and recurring issues with nausea, which had forced hospitalizations in the recent past. The patient presented to the Emergency Department a few days ago with reported progressive weakness associated with frequent falls, some of which were associated with bruising. The patient describes still ongoing significant issues with nausea that is almost non-relenting but without vomiting or major changes in bowel movement frequency. She is able to maintain good p.o. intake through this nausea. She denies active difficulties with dizziness, lightheadedness, syncope, or presyncope. She has not had major weight changes that have been noted recently. The patient has had diabetes mellitus for many years and following her most recent admission, her regimen was adjusted to a combination of Lantus insulin 10 units q.p.m. in addition to Jardiance 10 mg daily. The patient acknowledges that she does not monitor her blood glucose whatsoever at home, but denies issues with hypoglycemia. The patient is also known to have hypothyroidism and during her last presentation, she was found to be under massive under replacement with her TSH at that time measuring 95.57. Subsequently, her levothyroxine dose was adjusted to 200 mcg daily, which she maintains currently and her TSH 2 months later on 02/04/2019 was down to 0.404. The patient simply notes no tangible changes in her level of energy with that shift over the past 2 months. However, she indicates that she has been compliant with her levothyroxine intake and denies any active or significant therapeutic gaps. REVIEW OF SYSTEMS: CONSTITUTIONAL: Fatigue, tiredness, progressive weakness, no weight changes. No fever or chills. HEENT: Negative for sore throat, sinus pain, or ear drainage. PULMONARY: Occasional shortness of breath, dyspnea on exertion, intermittent [facility] [address] [place] [address] CONSULTATION Name: DEANNA MCGOVERN Room #: 452-P [facility] IN .R.#: [id number] Admission: 02/11/19 Attend Phys: Raffy Weaver MD Discharge: Date of : 46 Report #: [id number] cough. No hemoptysis. CARDIAC: No chest pain, occasional palpitations, no syncope or presyncope. GASTROINTESTINAL: Constant nausea, almost there all the time, but without vomiting. She has intermittent bouts of abdominal discomfort, but no major changes in bowel movement frequency. NEUROLOGY: Negative for loss of consciousness, seizure activity, frequent severe headaches. PSYCHIATRIC: Occasional issues with depressed mood and anxiety, but no hallucinations or delusions. SKIN: No rash, ulceration, or other major abnormalities. Otherwise, review of systems noncontributory unless mentioned in HPI. PAST MEDICAL HISTORY: 1. Type 2 diabetes mellitus. 2. Hypothyroidism. 3. Asthma. 4. Hypertension. 5. Hyperlipidemia. 6. Obstructive sleep apnea. 7. Obesity. 8. Osteoarthritis. 9. Chronic nausea. 10. GERD. PAST SURGICAL HISTORY: Cholecystectomy, rotator cuff surgery, femoral fracture from avascular necrosis, hernial repair, spinal fusion surgery, colectomy due to perforated colon. OUTPATIENT MEDICATIONS: Include Zofran 4 mg q. 8 hours p.r.n., Phenergan 25 mg q. 4 hours p.r.n., vitamin B6, Prilosec 20 mg at bedtime, aspirin 81 mg daily, Lantus insulin 10 units at bedtime, Pradaxa 150 mg b.i.d., Remeron 50 mg at bedtime, Jardiance 25 mg daily, levothyroxine 200 mcg daily, enalapril 20 mg daily, simvastatin 20 mg daily. ALLERGIES: PENICILLIN AND PREDNISONE. SOCIAL HISTORY: Lives alone. Denies any active use of tobacco, alcohol, or illicit drugs. PHYSICAL EXAMINATION: GENERAL: A female patient who is not in apparent pain or distress. VITAL SIGNS: Blood pressure is 122/59 mmHg, heart rate is 74 beats per minute, respirations 14 per minute, temperature 36.6 degrees. CONSTITUTIONAL: The patient is lying supine in bed, comfortable, not in apparent distress. HEENT: Anicteric sclerae. Intact extraocular motions. [facility] [address] [place] [address] CONSULTATION Name: DEANNA MCGOVERN Room #: 452-[facility] IN M.R.#: [id number] Admission: 12/26/19 Attend Phys: Raffy Weaver MD Discharge: Date of : 46 Report #: [id number] NECK: Supple, without JVD, carotid bruits, or lymphadenopathy. I do not appreciate thyromegaly. CHEST: Noted for moderate entry bilaterally with scattered rales. HEART: Regular rate and rhythm without murmurs or gallops. ABDOMEN: Soft, lax. No guarding. Active bowel sounds. EXTREMITIES: Lower extremity exam, trace ankle edema bilaterally. No skin breaks, ulcerations, or other deformities. NEUROLOGIC: Awake, alert, and oriented to time, place, and person. The remainder of her examination is nonfocal. PSYCH: Flat mood and affect, but able to answer my questions appropriately. Otherwise, review of systems noncontributory other than those mentioned in HPI. LABORATORY DATA: Blood glucose on arrival was 83 and has since remained between 86 and 161 mg/dL. Sodium 140, potassium 3.0, chloride 109, CO2 of 20, anion gap 11, BUN 13, creatinine 0.7, glucose 94, AST 38, lipase 115, total bilirubin 0.5, calcium 9.2, phosphorus 3.6, magnesium 1.8, alkaline phosphatase 104, ALT 20, total protein 7.0, albumin 3.4, EGFR 83. Lactic acid 0.8. Total CPK 166. Troponin negative. Free T4 on 12/05/2018 was 0.5. INR 1.0. Hemoglobin 13.6, white blood count 6.4, hematocrit 42.2, platelets 185. TSH 0.261. Hemoglobin A1c on 12/06/2018 was 9.2. RADIOLOGICAL DATA: Radiology reports were reviewed as well and an abdominal MRI is noted for prior cholecystectomy as well as bilateral renal cysts, stable small hepatic cyst and stable small bilateral adrenal nodules. A CT scan of the head was done as well and showed no acute intracranial abnormalities, but showed age-related mild cerebral and cerebellar volume loss, atherosclerosis, and mild chronic central white matter microvascular ischemia. ASSESSMENT AND PLAN: 1. Type 2 diabetes mellitus. While the patient does not provide any home-based blood glucose data, she was maintained on presentation on her active home-based dose of Lantus 10 units at bedtime and had gone on to demonstrate a very good level of glycemic control, which leads me to think that she probably does as well at home. Her Jardiance is on hold at the present time, which is appropriate. Blood glucose monitoring will continue a.c. and at bedtime and further therapeutic adjustments will be made accordingly. Since her last documented hemoglobin A1c was on 12/06/2018, it is premature to repeat this measurement at this point in time. 2. Hypothyroidism. When seen in November, the patient was in severe hypothyroidism and her dosage was adjusted aggressively to 200 mcg daily. A TSH done about 10 days ago was reflective of adequate control, although the one that was measured yesterday showed some supression. I do not mind a mild down-titration of her levothyroxine to 175 mcg daily, but I would also like to obtain a free T4 for better objective assessment of her current level of control as this might should more light on any necessary titrations that are needed at [address] [address] CONSULTATION Name: DEANNA MCGOVERN Room #: 452-P [facility] IN M.R.#: [id number] Admission: 02/11/19 Attend Phys: Raffy Weaver MD Discharge: Date of : 46 Report #: [id number] this point in time. 3. Hyperlipidemia. The patient is currently maintained on atorvastatin 10 mg daily, which she is to continue. 4. Hypertension. The patient is under a good level of control under the current enalapril, monotherapy, she is to continue with the same. 5. Adrenal nodules. The patient has stable bilateral adrenal nodules that have a nonfunctioning benign outlook. These are to be monitored conservatively at the present time. I have reviewed the patient's clinical care notes, laboratory data, radiologic reports, both present and past in detail for over 35 minutes. I certainly appreciate this consultation by Dr. Weaver. <ELECTRONICALLY SIGNED> By: Baldev Matamoros MD 02/15/19 1157 [id number] Baldev Matamoros MD /nt
--- NOTE | 2019-02-15 12:01 | NUR ---
PT DISCHARGED HOME WITH HOME HEALTH. PT A&OX4, VSS, DENIES PAIN. LUNGS CLEAR NO SIGNS OF DISTRESS. ALL BELONGINGS WITH PATIENT. IV REMOVED AND DISCHARGE PAPERWORK COMPLETED.
--- NOTE | 2019-02-15 12:17 | NUR ---
CARE TEAM INDICATED THAT PT IS MEDICALLY STABLE TO RETURN HOME THIS DAY. CM CALLED AND SPOKE WITH PT'S DTR. CM INDICATED THAT ORDERS WILL BE SENT TO PT'S PRIVATE DUTY PROVIDER KARLI OTERO AND TO [facility] FOR RESUMPTION OF CARE. PT'S DTR INDICATED THAT PT'S SISTER WOULD BE PICKING PT UP THIS AFTERNOON. ORDERS FAXED. NO OTHER CM INTERVENTION INDICATED. PT TO DC HOME WITH [facility] PT, OT, AND NURSING AND PRIVATE DUTY THROUGH [facility]. CASE CLOSED.
== END 2019-02-15 12:38 | disposition home health service (06) | DRG 684 ==
LOC: ER 18:29 → EROBS 22:12 → 4W 22:12 → ENTRNSPT 02-15 12:00 → EDTRNSPTSTS 02-15 12:03 → 4W 02-15 12:38
PROVIDERS: Emergency Medicine; ADMIT Family Medicine
DX: N17.9 Acute kidney failure, unspecified (principal); E86.0 Dehydration; E87.6 Hypokalemia; J45.909 Unspecified asthma, uncomplicated; M19.90 Unspecified osteoarthritis, unspecified site; K21.9 Gastro-esophageal reflux disease without esophagitis; E11.9 Type 2 diabetes mellitus without complications; Z96.641 Presence of right artificial hip joint; E03.9 Hypothyroidism, unspecified; E78.5 Hyperlipidemia, unspecified; I10 Essential (primary) hypertension; G47.33 Obstructive sleep apnea (adult) (pediatric); E66.9 Obesity, unspecified; Z68.26 Body mass index [BMI] 26.0-26.9, adult; Z90.49 Acquired absence of other specified parts of digestive tract; Z79.4 Long term (current) use of insulin; Z88.0 Allergy status to penicillin; Z88.8 Allergy status to other drugs, medicaments and biological substances; Z87.891 Personal history of nicotine dependence; Z87.81 Personal history of (healed) traumatic fracture; Z82.5 Family history of asthma and other chronic lower respiratory diseases
CPT/HCPCS: 10040; 10045

== ENCOUNTER 2019-02-26 20:25 | Emergency (ER) | payer OTHER ==
[~2019-02-26] VITALS: Ht 165.1 cm; Wt 99.8 kg
[~2019-02-26 20:25] MED LIST changes: +MARINOL 2.5 MG2.5 M1 PO; +SYNTHROID175 MCG PO
[2019-02-26 22:15] LABS: ABSOLUTE NEUTROPHILS 8.1 thou/uL (1.4-8.2); BASOPHILS 1.2 % (0.0-2.0); EOSINOPHILS 0.6 % (0.0-3.0); HEMATOCRIT 44.3 % (37.0-47.0); HEMOGLOBIN 14.4 gm/dL (12.0-15.0); LYMPHOCYTES 18.7 % (24.0-44.0); MCHC 32.5 g/dL (28.0-37.0); MCV 86.2 fL (80.0-100.0); MONOCYTES 6.7 % (1.0-8.0); PLATELET COUNT 238 thou/uL (150-400); POLYS 72.8 % (36.0-66.0); RBC 5.14 mil/uL (4.20-5.00); WBC 11.2 thou/uL (4.0-11.0)
[2019-02-26 22:38] LABS: ALBUMIN 3.2 g/dL (3.4-5.0); CALCIUM 9.8 mg/dL (8.5-10.1); CREATININE 0.8 mg/dL (0.6-1.0); TOTAL BILIRUBIN 0.8 mg/dL (<0.1-1.0); TOTAL PROTEIN 6.5 g/dL (6.4-8.2)
[2019-02-26 22:49] LABS: POTASSIUM 2.9 mmol/L (3.5-5.1)
[2019-02-27 00:56] LABS: URINE BILIRUBIN 1+ (Negative); URINE BLOOD 1+ (Negative); URINE CLARITY SL CLOUDY; URINE COLOR YELLOW; URINE GLUCOSE-RANDOM* NEGATIVE (Negative); URINE KETONES 1+ (Negative); URINE NITRITE-REFLEX NEGATIVE (Negative); URINE PROTEIN (DIPSTICK) NEGATIVE (Negative); URINE SPECIFIC GRAVITY 1.015 (1.005-1.035); URINE UROBILINOGEN >= 8.0 E.U./dl (0.2-1.0)
[2019-02-27 00:58] LABS: ICTOTEST (BILI CONFIRMATORY) Positive (Negative); URINE LEUKOCYTES-REFLEX 1+ (Negative)
[2019-02-27 01:05] LABS: BACTERIA-REFLEX 1-9 Few /HPF (None Seen); CASTS None Seen /LPF (None Seen); CRYSTALS None Seen /LPF (None Seen); MUCUS 0-3 Light strn/LPF (None Seen); SQUAMOUS 0-3 Few /LPF (0-3); URINE RBC 3-10 Few /HPF (0-2)
[2019-02-27] MEDS ORDERED: KEFLEX500 M1 PO (01:11)
[2019-02-27 01:49] VITALS: BP 131/71
== END 2019-02-27 01:50 | disposition home or self-care (01) ==
LOC: ER 20:25
PROVIDERS: Physician Assistant
DX: E87.6 Hypokalemia (principal); R11.0 Nausea; R10.30 Lower abdominal pain, unspecified; E11.9 Type 2 diabetes mellitus without complications; K21.9 Gastro-esophageal reflux disease without esophagitis; J45.909 Unspecified asthma, uncomplicated; G47.30 Sleep apnea, unspecified; M19.90 Unspecified osteoarthritis, unspecified site; Z90.49 Acquired absence of other specified parts of digestive tract; Z96.641 Presence of right artificial hip joint; Z79.4 Long term (current) use of insulin; Z87.891 Personal history of nicotine dependence; Z88.0 Allergy status to penicillin; Z88.8 Allergy status to other drugs, medicaments and biological substances